=== PATIENT | female | born 1990 | race Hispanic/Latino ===

== ENCOUNTER 2016-10-26 16:34 | Emergency (ER) | payer SELFPAY ==
[2016-10-26 17:16] VITALS: BP 132/82
== END 2016-10-27 01:19 | disposition left against medical advice (07) ==
LOC: ED 16:34
DX: R10.9 Unspecified abdominal pain (principal); Z53.21 Procedure and treatment not carried out due to patient leaving prior to being seen by health care provider

== ENCOUNTER 2016-10-27 18:44 | Emergency (ER) | payer SELFPAY ==
[2016-10-27 19:03] VITALS: BP 116/80
== END 2016-10-27 22:30 | disposition left against medical advice (07) ==
LOC: ED 18:44
DX: Z53.21 Procedure and treatment not carried out due to patient leaving prior to being seen by health care provider (principal)

== ENCOUNTER 2018-10-22 08:08 | Emergency (ER) | payer OTHER ==
--- NOTE | 2018-10-22 08:54 | Emergency Department Report ---
Abscess Boil HPI - HPI Chief Complaint: Skin/Abscess/Foreign Body Stated Complaint: STAPH INFECTION/BUTTOCK Time Seen by Provider: 10/22/18 08:39 Duration: 3 Days Location: Other (buttock) Severity: Mild History: Yes Pain, No Fever, No Purulent Drainage, No Numbness, No Foreign Body, No Previous History, No Insect Bite HPI: This is a 28-year-old female nontoxic, well nourished in appearance, no acute signs of distress presents to the ED with c/o of bilateral buttock redness and pain. Patient stated that she had abscess in the area before. Patient denies any pus or drainage. Patient denies any fevers, chills, nausea, vomiting, chest pain, shortness of breath, headache or stiff neck. Patient states allergies to acetaminophen, penicillin, tramadol. Patient stated has no allergies to Motrin. Patient states past medical history of anxiety. Home Medications: Home Medications Medication Instructions Recorded Confirmed Last Taken clonazePAM [KlonoPIN] 1 mg PO TID 10/27/16 10/27/16 Unknown traZODone 150 mg PO 10/27/16 Unknown Previous Rx's Medication Instructions Recorded Last Taken Type Acetaminophen/Codeine [Tylenol 1 tab PO Q6H PRN #12 tab 08/19/18 Unknown Rx /Codeine # 3 tab] Sulfamethoxazole/Trimethoprim 1 each PO BID #20 tablet 08/19/18 Unknown Rx [Bactrim DS TAB] Clindamycin [Clindamycin CAP] 300 mg PO Q8H #21 cap 10/22/18 Unknown Rx Ibuprofen [Motrin] 600 mg PO Q8H PRN #20 tablet 10/22/18 Unknown Rx Allergies/Adverse Reactions: Allergies Allergy/AdvReac Type Severity Reaction Status Date / Time acetaminophen Allergy Rash Verified 10/27/16 18:57 [From Darvocet-N] ketorolac tromethamine Allergy Rash Verified 10/27/16 18:57 [From Toradol] Penicillins Allergy Unknown Verified 10/27/16 18:57 propoxyphene napsylate Allergy Rash Verified 10/27/16 18:57 [From Darvocet-N] tramadol Allergy Rash Verified 10/27/16 18:57 ED Review of Systems ROS: Stated complaint: STAPH INFECTION/BUTTOCK Other details as noted in HPI Constitutional: denies: chills, fever Eyes: denies: eye pain, eye discharge, vision change ENT: denies: ear pain, throat pain Respiratory: denies: cough, shortness of breath, wheezing Cardiovascular: denies: chest pain, palpitations Endocrine: no symptoms reported Gastrointestinal: denies: abdominal pain, nausea, diarrhea Genitourinary: denies: urgency, dysuria, discharge Musculoskeletal: denies: back pain, joint swelling, arthralgia Skin: denies: rash, lesions Neurological: denies: headache, weakness, paresthesias Psychiatric: denies: anxiety, depression Hematological/Lymphatic: denies: easy bleeding, easy bruising ED Past Medical Hx - Past Medical History Previous Medical History?: No Hx Seizures: Yes Hx Psychiatric Treatment: Yes (anxiety) Additional medical history: Anxiety - Surgical History Past Surgical History?: No Additional Surgical History: UNKNOWN - Social History Smoking Status: Current Every Day Smoker Substance Use Type: None - Medications Home Medications: Home Medications Medication Instructions Recorded Confirmed Last Taken Type clonazePAM [KlonoPIN] 1 mg PO TID 10/27/16 10/27/16 Unknown History traZODone 150 mg PO 10/27/16 Unknown History Acetaminophen/Codeine [Tylenol 1 tab PO Q6H PRN #12 tab 08/19/18 Unknown Rx /Codeine # 3 tab] Sulfamethoxazole/Trimethoprim 1 each PO BID #20 tablet 08/19/18 Unknown Rx [Bactrim DS TAB] Clindamycin [Clindamycin CAP] 300 mg PO Q8H #21 cap 10/22/18 Unknown Rx Ibuprofen [Motrin] 600 mg PO Q8H PRN #20 tablet 10/22/18 Unknown Rx ED Abscess Boil Physical Exam - Exam General: Vital signs noted. No distress. Alert and acting appropriately. Front/Back of Body, Lg (Color): 1 - 2cm by 2 cm circulation erythema with no induration or fluctuance. 2 - 2cm by 2 cm circulation erythema with no induration or fluctuance. Exam: Yes Tenderness, Yes Surrounding Cellulites/Erythema, Yes Normal Neurologic Exam, Yes Normal Circulation, No Fluctuance, No Lymphangitis, No Crepitation, No Heart Murmur Exam: Social Worker Aide Luda seismograph recorder present during exam. ED Course Vital Signs 10/22/18 08:29 Temperature 98.1 F Pulse Rate 99 H Respiratory 16 Rate Blood Pressure 111/71 O2 Sat by Pulse 98 Oximetry - Reevaluation(s) Reevaluation #1: 10/22/18 08:57 Patient is speaking in full sentences with no signs of distress noted. Critical care attestation.: If time is entered above; I have spent that time in minutes in the direct care of this critically ill patient, excluding procedure time. ED Medical Decision Making - Medical Decision Making This is a 28-year-old female that presents with cellulitis. Patient is stable and was examined by me. There is no induration, fluctuance. No signs of abscess formation. The area has been outlined with a permanent marker and patient was instructed to observe symptoms of increased redness or swelling and to return to the ER if this does occur. I will discharge patient with Clinda. Patient did receive a tetanus booster in the ER. Patient was referred to Follow-up with a primary care doctor in 3-5 days or if symptoms worsen and continue return to emergency room as soon as possible. At time of discharge, the patient does not seem toxic or ill in appearance. No acute signs of distress noted. Patient agrees to discharge treatment plan of care. No further questions noted by the patient. ED Disposition Clinical Impression: Cellulitis Disposition: [id number] TO HOME OR SELFCARE Is pt being admited?: No Does the pt Need Aspirin: No Condition: Stable Instructions: Ibuprofen (By mouth), Cellulitis (ED) Additional Instructions: Follow-up with a primary care doctor in 3-5 days or if symptoms worsen and continue return to emergency room as soon as possible. If symptoms of swelling or increased redness occurs you must come back to the ED for further evaluation with possible incision and drainage to be performed as this may indicate an abscess formation. Prescriptions: Clindamycin [Clindamycin CAP] 300 mg PO Q8H #21 cap Ibuprofen [Motrin] 600 mg PO Q8H PRN #20 tablet PRN Reason: Pain Referrals: PRIMARY MYKEL, [Primary Care Provider] - 3-5 Days KRYSTA BOUCHER MD [Staff Physician] - 3-5 Days [facility] [Outside] - 3-5 Days [facility] [Outside] - 3-5 Days Forms: Work/School Release Form(ED)
== END 2018-10-22 09:04 | disposition home or self-care (01) ==
LOC: ED 08:08
CPT/HCPCS: 99281

== ENCOUNTER 2018-12-11 07:55 | Inpatient (IN) | payer OTHER ==
[2018-12-11 08:39] LABS: Basophils # (Auto) 0.1 K/mm3 (0.0-0.1); Basophils % (Auto) 0.5 % (0.0-1.8); Eosinophils # (Auto) 0.2 K/mm3 (0.0-0.4); Eosinophils % (Auto) 1.5 % (0.0-4.3); Hematocrit 40.3 % (30.3-42.9); Hemoglobin 13.6 gm/dl (10.1-14.3); Lymphocytes # (Auto) 0.9 K/mm3 (1.2-5.4); Lymphocytes % (Auto) 7.8 % (13.4-35.0); Mean Corpuscular HGB Conc 34 % (30-34); Mean Corpuscular Volume 92 fl (79-97); Monocytes # (Auto) 0.8 K/mm3 (0.0-0.8); Monocytes % (Auto) 6.5 % (0.0-7.3); Red Cell Distribution Width 13.2 % (13.2-15.2)
[2018-12-11] MEDS ORDERED: TYLENOL PO ONE (08:40)
--- NOTE | 2018-12-11 08:42 | Emergency Department Report ---
HPI - General Chief Complaint: Nausea/Vomiting/Diarrhea Time Seen by Provider: 12/11/18 08:15 - HPI HPI: 28-year-old female presents to the emergency department with complaint of nausea and vomiting, chills and sweats, headache, body aches, that has been going on for the past 2-3 days. The patient is coming from an inpatient rehabilitation center where there are other people with some flulike symptoms. She is therefore a history of meth use but says it has been about 5 months since she last used any illicit drugs. She has not taken anything for her symptoms prior to arrival. She has a past medical history as well of anxiety and seizu res. No recent travel. ED Past Medical Hx - Past Medical History Previous Medical History?: Yes Hx Seizures: Yes Hx Psychiatric Treatment: Yes (anxiety) Additional medical history: Anxiety - Surgical History Past Surgical History?: No Additional Surgical History: UNKNOWN - Social History Smoking Status: Current Every Day Smoker Substance Use Type: None - Medications Home Medications: Home Medications Medication Instructions Recorded Confirmed Last Taken Type clonazePAM [KlonoPIN] 1 mg PO TID 10/27/16 10/27/16 Unknown History traZODone 150 mg PO 10/27/16 Unknown History Acetaminophen/Codeine [Tylenol 1 tab PO Q6H PRN #12 tab 08/19/18 Unknown Rx /Codeine # 3 tab] Sulfamethoxazole/Trimethoprim 1 each PO BID #20 tablet 08/19/18 Unknown Rx [Bactrim DS TAB] Clindamycin [Clindamycin CAP] 300 mg PO Q8H #21 cap 10/22/18 Unknown Rx Ibuprofen [Motrin] 600 mg PO Q8H PRN #20 tablet 10/22/18 Unknown Rx ED Review of Systems ROS: Stated complaint: RUNNING FEVER/VOMITING Other details as noted in HPI Comment: All other systems reviewed and negative Constitutional: chills, diaphoresis Eyes: denies: eye pain, vision change ENT: ear pain. denies: throat pain Respiratory: denies: cough, shortness of breath Cardiovascular: denies: chest pain, palpitations Gastrointestinal: nausea, vomiting Genitourinary: denies: dysuria, discharge Musculoskeletal: myalgia. denies: back pain, arthralgia Skin: denies: rash, lesions Neurological: headache. denies: weakness, numbness Physical Exam - Physical Exam Vital Signs: Vital Signs 12/11/18 07:59 Temperature 98.2 F Pulse Rate 102 H Respiratory 16 Rate Blood Pressure 117/65 O2 Sat by Pulse 97 Oximetry Physical Exam: GENERAL: The patient is well-developed well-nourished. HEENT: Normocephalic. Atraumatic. Patient has moist mucous membranes. Normal- appearing bilateral external ear canals and tympanic membranes. Oropharynx is clear. EYES: Extraocular motions are intact. Pupils are equal and reactive to light bilaterally. Mild fatigable horizontal nystagmus. NECK: Supple. Trachea is midline. CHEST/LUNGS: Clear to auscultation. There is no respiratory distress noted. HEART/CARDIOVASCULAR: Regular. There is no tachycardia. There is no obvious murmur. ABDOMEN: Abdomen is soft. There is some mild right upper quadrant and epigastric tenderness to palpation. No guarding. Patient has normal bowel sounds. There is no abdominal distention. SKIN: Skin is warm and dry. NEURO: The patient is awake, alert, and oriented. The patient is cooperative. The patient has no focal neurologic deficits. The patient has normal speech. Cranial nerves II through XII grossly intact. MUSCULOSKELETAL: There is no tenderness or deformity. There is no limitation range of motion. There is no evidence of acute injury. ED Course Vital Signs 12/11/18 07:59 Temperature 98.2 F Pulse Rate 102 H Respiratory 16 Rate Blood Pressure 117/65 O2 Sat by Pulse 97 Oximetry - Consultations Consultation #1: 12/11/18 10:39 I spoke with the General Surgeon mobile electronics installer, Dr Wilson, regarding the U/S findings of possible choledocholithiasis and her transaminitis and clinical picture. He agrees that it may be prudent to keep the patient as an observational stay and get an MRCP rule in/rule out the choledocholithiasis. ED Medical Decision Making - Lab Data Result diagrams: 12/11/18 08:23 12/11/18 08:23 - Radiology Data Radiology results: report reviewed ULTRASOUND ABDOMEN LIMITED: TECHNIQUE: Transabdominal ultrasound with color Doppler interrogation. HISTORY: Right upper quadrant pain, elevated LFTs. COMPARISON: none. FINDINGS: LIVER: Normal. BILIARY SYSTEM: The gallbladder appears to be partially contracted and contains numerous small shadowing stones. No evidence for abnormal distention or wall thickening. The common bile duct is mildly dilated measuring 6.4 mm. Choledocholithiasis cannot be excluded. PANCREAS: Poorly visualized secondary to bowel gas. No gross abnormality. RIGHT KIDNEY: Normal. PROXIMAL AORTA: Normal. ASCITES: None. IMPRESSION: Cholelithiasis. The common bile duct is mildly dilated suggesting choledocholithiasis could be present. Please correlate with the patient and consider further evaluation with MRCP or ERCP. Transcribed By: TTR Dictated By: ISMAEL MELGAR JR, MD Electronically Authenticated By: ISMAEL MELGAR JR, MD Signed Date/Time: 12/11/18 1002 - Medical Decision Making Patient presents with a 2 day history of some nausea and vomiting, body aches, mild headache, chills, sweats. Overall this seems more consistent with a viral syndrome or flulike symptoms. Patient does have a history of hepatitis C and during her workup her LFTs are elevated at about 6 times the normal limit. However it is much more elevated than her last visit here a few years ago. For this reason an ultrasound was done and came back showing cholelithiasis with some common bile duct dilation that could be hr representative of choledocholithias is. I spoke with the general surgeon mobile electronics installer who agrees that it may be prudent to keep the patient as an observational stay and get an MRCP to look into this. The patient has been updated and understands and agrees to plan. The patient has been accepted for admission by the hospitalist service. - Differential Diagnosis URI, influenza, cholelithiasis, choledocholithiasis, cholecystitis Critical Care Time: No Critical care attestation.: If time is entered above; I have spent that time in minutes in the direct care of this critically ill patient, excluding procedure time. ED Disposition Clinical Impression: Choledocholithiasis, Transaminitis, History of hepatitis C Nausea & vomiting Qualifiers: Vomiting type: unspecified Vomiting Intractability: non-intractable Qualified Code(s): R11.2 - Nausea with vomiting, unspecified Disposition: OP ADMIT IP TO THIS HOSP Is pt being admited?: Yes Condition: Stable Referrals: PRIMARY CARE, [Referring] - 3-5 Days Time of Disposition: 10:36
[2018-12-11] MEDS ORDERED: ZOFRAN ODT PO ONE (08:43)
[2018-12-11 08:54] LABS: Bacteria,Urine 1+ /HPF (Negative); Bilirubin,Urine NEG (Negative); Blood,Urine NEG (Negative); Color,Urine Amber (Yellow); Mucus,Urine 3+ /HPF; Urobilinogen,Urine < 2.0 mg/dL (<2.0)
[2018-12-11] MEDS ORDERED: BACTRIM DS PO ONE (08:59)
[2018-12-11 09:01] LABS: Alanine Aminotransferase 248 units/L (7-56); Albumin 3.7 g/dL (3.9-5); BUN/Creatinine Ratio 15; Blood Urea Nitrogen 9 mg/dL (7-17); Calcium 8.2 mg/dL (8.4-10.2); Hemolysis Index 43
[2018-12-11 09:33] LABS: Platelet Count 199 K/mm3 (140-440)
--- NOTE | 2018-12-11 10:06 | Ultrasound Report ---
ULTRASOUND ABDOMEN LIMITED: TECHNIQUE: Transabdominal ultrasound with color Doppler interrogation. HISTORY: Right upper quadrant pain, elevated LFTs. COMPARISON: none. FINDINGS: LIVER: Normal. BILIARY SYSTEM: The gallbladder appears to be partially contracted and contains numerous small shadowing stones. No evidence for abnormal distention or wall thickening. The common bile duct is mildly dilated measuring 6.4 mm. Choledocholithiasis cannot be excluded. PANCREAS: Poorly visualized secondary to bowel gas. No gross abnormality. RIGHT KIDNEY: Normal. PROXIMAL AORTA: Normal. ASCITES: None. IMPRESSION: Cholelithiasis. The common bile duct is mildly dilated suggesting choledocholithiasis could be present. Please correlate with the patient and consider further evaluation with MRCP or ERCP.
[2018-12-11] MEDS ORDERED: SODIUM CHLORIDE FLUSH SYRINGE 10 ML IV PRN (11:01)
[2018-12-11] MEDS ORDERED: TYLENOL PO PRN (11:01)
[2018-12-11] MEDS: LEVAQUIN 750MG/150ML 750 MG/150 ML BAG IV SCH (12:07)
[2018-12-11] MEDS: NS/KCL 20MEQ 20 MEQ/1,000 ML BAG IV SCH (12:08)
--- NOTE | 2018-12-11 12:37 | Progress Note ---
Assessment and Plan Full consult dictated HPI: 28-year-old female presents to the emergency department with complaint of nausea and vomiting, chills and sweats, headache, body aches, that has been going on for the past 2-3 days. The patient is coming from an inpatient rehabilitation center where there are other people with some flulike symptoms. She is therefore a history of meth use but says it has been about 5 months since she last used any illicit drugs. She has not taken anything for her symptoms prior to arrival. She has a past medical history as well of anxiety and seizures. No recent travel. ED Past Medical Hx - Past Medical History Previous Medical History?: Yes Hx Seizures: Yes Hx Psychiatric Treatment: Yes (anxiety) Additional medical history: Anxiety - Surgical History Past Surgical History?: No Additional Surgical History: UNKNOWN - Social History Smoking Status: Current Every Day Smoker Substance Use Type: None imp - choledocolithiasis r/o biliary colic r/o choledocolithiasi hep C psych and drug abuse hx rec keep NPO will order HIDA & MRCP GI eval Selected Entries 12/11/18 12/11/18 07:59 11:34 Temperature 98.2 F Pulse Rate 99 H Respiratory 18 Rate Blood Pressure 120/75 [Right] Laboratory Tests 12/11/18 12/11/18 12/11/18 08:23 08:23 08:23 WBC 11.6 H Hgb 13.6 Hct 40.3 Sodium 135 L Potassium 3.6 Chloride 101.0 BUN 9 Creatinine 0.6 L Glucose 110 H Total Bilirubin 0.50 AST 178 H ALT 248 H Alkaline Phosphatase 81 Lipase 20 Objective Vital Signs - 12hr 12/11/18 12/11/18 12/11/18 07:59 09:00 10:43 Temperature 98.2 F Pulse Rate 102 H Respiratory 16 18 18 Rate Blood Pressure 117/65 Blood Pressure [Right] O2 Sat by Pulse 97 99 Oximetry 12/11/18 11:34 Temperature Pulse Rate 99 H Respiratory 18 Rate Blood Pressure Blood Pressure 120/75 [Right] O2 Sat by Pulse 99 Oximetry - Labs 12/11/18 08:23 12/11/18 08:23 Diabetes panel 12/11/18 Range/Units 08:23 Sodium 135 L (137-145) mmol/L Potassium 3.6 (3.6-5.0) mmol/L Chloride 101.0 (98-107) mmol/L Carbon Dioxide 24 (22-30) mmol/L BUN 9 (7-17) mg/dL Creatinine 0.6 L (0.7-1.2) mg/dL Glucose 110 H (65-100) mg/dL Calcium 8.2 L (8.4-10.2) mg/dL AST 178 H (5-40) units/L ALT 248 H (7-56) units/L Alkaline Phosphatase 81 (35-129) units/L Total Protein 6.5 (6.3-8.2) g/dL Albumin 3.7 L (3.9-5) g/dL Calcium panel 12/11/18 Range/Units 08:23 Calcium 8.2 L (8.4-10.2) mg/dL Albumin 3.7 L (3.9-5) g/dL Pituitary panel 12/11/18 Range/Units 08:23 Sodium 135 L (137-145) mmol/L Potassium 3.6 (3.6-5.0) mmol/L Chloride 101.0 (98-107) mmol/L Carbon Dioxide 24 (22-30) mmol/L BUN 9 (7-17) mg/dL Creatinine 0.6 L (0.7-1.2) mg/dL Glucose 110 H (65-100) mg/dL Calcium 8.2 L (8.4-10.2) mg/dL Adrenal panel 12/11/18 Range/Units 08:23 Sodium 135 L (137-145) mmol/L Potassium 3.6 (3.6-5.0) mmol/L Chloride 101.0 (98-107) mmol/L Carbon Dioxide 24 (22-30) mmol/L BUN 9 (7-17) mg/dL Creatinine 0.6 L (0.7-1.2) mg/dL Glucose 110 H (65-100) mg/dL Calcium 8.2 L (8.4-10.2) mg/dL Total Bilirubin 0.50 (0.1-1.2) mg/dL AST 178 H (5-40) units/L ALT 248 H (7-56) units/L Alkaline Phosphatase 81 (35-129) units/L Total Protein 6.5 (6.3-8.2) g/dL Albumin 3.7 L (3.9-5) g/dL
[2018-12-11] MEDS: MORPHINE IV PRN ×2 (13:02→20:43)
[2018-12-11] MEDS: FLAGYL 500 MG/100 ML 500 MG/100 ML BAG IV SCH ×2 (14:44→22:07)
--- NOTE | 2018-12-11 15:43 | Gastroenterology Consultation ---
Addendum entered and electronically signed by LEFTY CLINE MD 12/11/18 17:20: Patient seen and examined on 12/11/2018. 28 yo female with pmh of HCV (not treated) admitted for N/V/D. GI consulted for elevated liver enzymes. US showing mild dilation of CBD but just above the upper limits. Liver enzymes mildly elevated with AST and ALT but Alk phos and bilirubin normal. MRCP pending for tomorrow to evaluate for CBD dilation and rule out CBD stone. - will check acute hepatitis panel. - will follow. Original Note: History of Present Illness - Reason for Consult Consult date: 12/11/18 elevated LFTs, Hep C, dilated CBD Requesting physician: JOEY MONTERO - History of Present Illness Patient is a 28 y/o female with PMH of seizures, anxiety, hepatitis C (untreated; dx 2 months ago), and illicit drug use (meth; no use in several months) who presented to ED with c/o N/V/D and flulike symptoms. Upon admission, LFTs were found to be elevated and she underwent an abd U/S that showed gallstones with a mildly dilated CBD suggestive of choledocholithiasis to which GI has been consulted. Surgery is following. This afternoon patient was resting in bed w/o acute distress. Report an acute onset of N/V, diarrhea, chills, and body aches 2 days ago with symptoms now improving. No vomiting today and BM x 1. Admits to generalized "burning sensation" in epigastric/substernal chest area. Denies wt loss, SOB, dysphagia, signs of bleeding, jaundice, or constipation. No recent abx therapy or travel but has been around other at inpatient rehabilitation center with similar symptoms. No hx of PUD or previous EGD. Abdomen benign upon exam. Past History Past Medical History: other (as per HPI) Past Surgical History: No surgical history Social history: smoking, other (illicit drug use (meth; no use x 5months)) Medications and Allergies Allergies Allergy/AdvReac Type Severity Reaction Status Date / Time ketorolac tromethamine Allergy Rash Verified 12/11/18 07:57 [From Toradol] Penicillins Allergy Unknown Verified 12/11/18 07:57 propoxyphene napsylate Allergy Rash Verified 12/11/18 07:57 [From Darvocet-N] tramadol Allergy Rash Verified 12/11/18 07:57 Home Medications Medication Instructions Recorded Confirmed Last Taken Type Citalopram [celeXA] 20 mg PO QDAY 12/11/18 12/11/18 12/11/18 History busPIRone [Buspar] 10 mg PO BID 12/11/18 12/11/18 12/10/18 History traZODone [Desyrel] 100 mg PO QHS 12/11/18 12/11/18 12/10/18 History Active Meds: Active Medications Acetaminophen (Tylenol) 650 mg PO Q4H PRN PRN Reason: Pain MILD(1-3)/Fever >100.5/CRUZ Levofloxacin/Dextrose (Levaquin 750mg/150ml) 750 mg in 150 mls @ 100 mls/hr IV Q24HR JAYDEN; Protocol Last Admin: 12/11/18 12:07 Dose: 100 mls/hr Documented by: Metronidazole (Flagyl 500 Mg/100 Ml) 500 mg in 100 mls @ 100 mls/hr IV Q8HR JAYDEN; Protocol Last Admin: 12/11/18 14:44 Dose: 100 mls/hr Documented by: Potassium Chloride/Sodium Chloride (Ns/Kcl 20meq) 20 meq in 1,000 mls @ 100 mls/hr IV DIRECT JAYDEN Last Admin: 12/11/18 12:08 Dose: 100 mls/hr Documented by: Morphine Sulfate (Morphine) 2 mg IV Q3H PRN PRN Reason: Pain, Moderate (4-6) Last Admin: 12/11/18 13:02 Dose: 2 mg Documented by: Ondansetron HCl (Zofran) 4 mg IV Q8H PRN PRN Reason: Nausea And Vomiting Sodium Chloride (Sodium Chloride Flush Syringe 10 Ml) 10 ml IV BID JAYDEN Sodium Chloride (Sodium Chloride Flush Syringe 10 Ml) 10 ml IV PRN PRN PRN Reason: LINE FLUSH medications reviewed/updated as required Review of Systems - Review of Systems Constitutional: chills, other (body aches) Gastrointestinal: nausea, vomiting, diarrhea Exam - Constitutional Vital Signs: Temp Pulse Resp BP Pulse Ox 98.2 F 99 H 18 120/75 99 12/11/18 07:59 12/11/18 11:34 12/11/18 11:34 12/11/18 11:34 12/11/18 11:34 General appearance: no acute distress - EENT Eyes: PERRL, EOM intact ENT: hearing intact - Respiratory Respiratory: bilateral: CTA - Cardiovascular Rhythm: other (tachycardia) - Gastrointestinal General gastrointestinal: Present: soft, non-tender, non-distended, normal bowel sounds - Neurologic Neurological: alert and oriented x3 - Labs CBC & Chem 7: 12/11/18 08:23 12/11/18 08:23 Lab Results: Laboratory Results - last 24 hr 12/11/18 12/11/18 12/11/18 08:17 08:23 08:23 WBC 11.6 H RBC 4.40 Hgb 13.6 Hct 40.3 MCV 92 MCH 31 MCHC 34 RDW 13.2 Plt Count 199 Lymph % (Auto) 7.8 L [place] % (Auto) 6.5 Eos % (Auto) 1.5 Baso % (Auto) 0.5 Lymph # 0.9 L [place] # 0.8 Eos # 0.2 Baso # 0.1 Seg Neutrophils % 83.7 H Seg Neutrophils # 9.7 H Sodium 135 L Potassium 3.6 Chloride 101.0 Carbon Dioxide 24 Anion Gap 14 BUN 9 Creatinine 0.6 L Estimated GFR > 60 BUN/Creatinine Ratio 15 Glucose 110 H Calcium 8.2 L Total Bilirubin 0.50 AST 178 H ALT 248 H Alkaline Phosphatase 81 Total Protein 6.5 Albumin 3.7 L Albumin/Globulin Ratio 1.3 Lipase HCG, Qual Urine Color Emely Urine Turbidity Clear Urine pH 5.0 Ur Specific [place] 1.031 H Urine Protein 30 mg/dl Urine Glucose (UA) Neg Urine Ketones Neg Urine Blood Neg Urine Nitrite Neg Urine Bilirubin Neg Urine Urobilinogen < 2.0 Ur Leukocyte Esterase Tr Urine WBC (Auto) 11.0 H Urine RBC (Auto) 5.0 U Epithel Cells (Auto) 4.0 Urine Bacteria (Auto) 1+ Urine Mucus 3+ 12/11/18 12/11/18 08:23 08:23 WBC RBC Hgb Hct MCV MCH MCHC RDW Plt Count Lymph % (Auto) [place] % (Auto) Eos % (Auto) Baso % (Auto) Lymph # [place] # Eos # Baso # Seg Neutrophils % Seg Neutrophils # Sodium Potassium Chloride Carbon Dioxide Anion Gap BUN Creatinine Estimated GFR BUN/Creatinine Ratio Glucose Calcium Total Bilirubin AST ALT Alkaline Phosphatase Total Protein Albumin Albumin/Globulin Ratio Lipase 20 HCG, Qual Negative Urine Color Urine Turbidity Urine pH Ur Specific [place] Urine Protein Urine Glucose (UA) Urine Ketones Urine Blood Urine Nitrite Urine Bilirubin Urine Urobilinogen Ur Leukocyte Esterase Urine WBC (Auto) Urine RBC (Auto) U Epithel Cells (Auto) Urine Bacteria (Auto) Urine Mucus Assessment and Plan 1.choledocholithiasis? 2.elevated LFTs 3.epigastric/substernal burning 4.N/V/D-improving 5.Hx of hepatitis C -patient is a 28 y/o female with an acute on set of N/V/D and flulike symptoms x 2 days with symptoms now improving. No vomiting today/BM x 1. -afebrile -WBC 11.6 -H/H 13.6/40.3- no active signs of bleeding -plt 199 -T.lawson 0.50, AST 178, ALT 248, alk phos 81 -lipase WNL -abd U/S showed gallstones and mildly dilated CBD (6.4mm) suggestive of choledocholithiasis -surgery following -etiology unclear- possible viral process vs GB vs other -MRCP and HIDA pending- consider ERCP based on result -INR, acute hepatitis panel, and repeat CBC/CMP in am -HCV VL and genotype in am (treatment as outpt) -continue PPI and supportive care -further recommendations to follow above results
--- NOTE | 2018-12-11 15:47 | History and Physical Report ---
History of Present Illness Date of examination: 12/11/18 Date of admission: 12/11/18 10:37 Chief complaint: Nausea and vomiting History of present illness: She is a 28-year-old female with history of recent diagnosis of hepatitis C virus infection, who presented to the ED on account of 2 days history of nausea with vomiting. She has associated burning epigastric pain, fever with chills, diarrhea and headaches. She denies constipation, dysuria or frequency, but admits to foul-smelling urine. No chest pain, shortness of breath, palpitation, leg swelling, sore throat, runny nose or congestion, orthopnea or PND. No lightheadedness, bleeding from any orifice, syncope or loss of consciousness Past History Past Medical History: other (hepatitis C virus infection, anxiety) Past Surgical History: No surgical history Social history: smoking (has been smoking few sticks of cigarettes per day for a year), alcohol abuse (denies alcohol use), IV drug use (used methamphetamine and IV drug use for 5 years but quit 8 months ago) Family history: no significant family history (reviewed and noncontributory) Medications and Allergies Allergies Allergy/AdvReac Type Severity Reaction Status Date / Time ketorolac tromethamine Allergy Rash Verified 12/11/18 07:57 [From Toradol] Penicillins Allergy Unknown Verified 12/11/18 07:57 propoxyphene napsylate Allergy Rash Verified 12/11/18 07:57 [From Darvocet-N] tramadol Allergy Rash Verified 12/11/18 07:57 Home Medications Medication Instructions Recorded Confirmed Last Taken Type Citalopram [celeXA] 20 mg PO QDAY 12/11/18 12/11/18 12/11/18 History busPIRone [Buspar] 10 mg PO BID 12/11/18 12/11/18 12/10/18 History traZODone [Desyrel] 100 mg PO QHS 12/11/18 12/11/18 12/10/18 History Active Meds: Active Medications Acetaminophen (Tylenol) 650 mg PO Q4H PRN PRN Reason: Pain MILD(1-3)/Fever >100.5/CRUZ Levofloxacin/Dextrose (Levaquin 750mg/150ml) 750 mg in 150 mls @ 100 mls/hr IV Q24HR [facility]; Protocol Last Admin: 12/11/18 12:07 Dose: 100 mls/hr Documented by: Metronidazole (Flagyl 500 Mg/100 Ml) 500 mg in 100 mls @ 100 mls/hr IV Q8HR JAYDEN; Protocol Last Admin: 12/11/18 14:44 Dose: 100 mls/hr Documented by: Potassium Chloride/Sodium Chloride (Ns/Kcl 20meq) 20 meq in 1,000 mls @ 100 mls/hr IV DIRECT JAYDEN Last Admin: 12/11/18 12:08 Dose: 100 mls/hr Documented by: Morphine Sulfate (Morphine) 2 mg IV Q3H PRN PRN Reason: Pain, Moderate (4-6) Last Admin: 12/11/18 13:02 Dose: 2 mg Documented by: Ondansetron HCl (Zofran) 4 mg IV Q8H PRN PRN Reason: Nausea And Vomiting Sodium Chloride (Sodium Chloride Flush Syringe 10 Ml) 10 ml IV BID JAYDEN Sodium Chloride (Sodium Chloride Flush Syringe 10 Ml) 10 ml IV PRN PRN PRN Reason: LINE FLUSH Review of Systems All systems: negative (except as documented in the HPI, all other systems were reviewed and negative) Exam - Constitutional Vitals: Temp Pulse Resp BP Pulse Ox 98.2 F 99 H 18 120/75 99 12/11/18 07:59 12/11/18 11:34 12/11/18 11:34 12/11/18 11:34 12/11/18 11:34 General appearance: Present: no acute distress, well-nourished - EENT Eyes: Present: PERRL, EOM intact ENT: hearing intact, clear oral mucosa - Neck Neck: Present: supple, normal ROM - Respiratory Respiratory effort: normal Respiratory: bilateral: CTA - Cardiovascular Rhythm: regular Heart Sounds: Present: S1 & S2. Absent: rub, click - Extremities Extremities: No edema Peripheral Pulses: within normal limits - Abdominal General gastrointestinal: Present: soft, non-tender, non-distended, normal bowel sounds Female genitourinary: Present: normal - Rectal Rectal Exam: deferred - Integumentary Integumentary: Present: clear, warm, dry - Musculoskeletal Musculoskeletal: gait normal, strength equal bilaterally - Psychiatric Psychiatric: appropriate mood/affect, intact judgment & insight - Neurologic Neurologic: CNII-XII intact, moves all extremities Results - Labs CBC & Chem 7: 12/11/18 08:23 12/11/18 08:23 Labs: Laboratory Last Values WBC 11.6 K/mm3 (4.5-11.0) H 12/11/18 08:23 RBC 4.40 M/mm3 (3.65-5.03) 12/11/18 08:23 Hgb 13.6 gm/dl (10.1-14.3) 12/11/18 08:23 Hct 40.3 % (30.3-42.9) 12/11/18 08:23 MCV 92 fl (79-97) 12/11/18 08:23 MCH 31 pg (28-32) 12/11/18 08:23 MCHC 34 % (30-34) 12/11/18 08:23 RDW 13.2 % (13.2-15.2) 12/11/18 08:23 Plt Count 199 K/mm3 (140-440) 12/11/18 08:23 Lymph % (Auto) 7.8 % (13.4-35.0) L 12/11/18 08:23 [place] % (Auto) 6.5 % (0.0-7.3) 12/11/18 08:23 Eos % (Auto) 1.5 % (0.0-4.3) 12/11/18 08:23 Baso % (Auto) 0.5 % (0.0-1.8) 12/11/18 08:23 Lymph # 0.9 K/mm3 (1.2-5.4) L 12/11/18 08:23 [place] # 0.8 K/mm3 (0.0-0.8) 12/11/18 08:23 Eos # 0.2 K/mm3 (0.0-0.4) 12/11/18 08:23 Baso # 0.1 K/mm3 (0.0-0.1) 12/11/18 08:23 Seg Neutrophils % 83.7 % (40.0-70.0) H 12/11/18 08:23 Seg Neutrophils # 9.7 K/mm3 (1.8-7.7) H 12/11/18 08:23 Sodium 135 mmol/L (137-145) L 12/11/18 08:23 Potassium 3.6 mmol/L (3.6-5.0) 12/11/18 08:23 Chloride 101.0 mmol/L (98-107) 12/11/18 08:23 Carbon Dioxide 24 mmol/L (22-30) 12/11/18 08:23 Anion Gap 14 mmol/L 12/11/18 08:23 BUN 9 mg/dL (7-17) 12/11/18 08:23 Creatinine 0.6 mg/dL (0.7-1.2) L 12/11/18 08:23 Estimated GFR > 60 ml/min 12/11/18 08:23 BUN/Creatinine Ratio 15 % 12/11/18 08:23 Glucose 110 mg/dL (65-100) H 12/11/18 08:23 Calcium 8.2 mg/dL (8.4-10.2) L 12/11/18 08:23 Total Bilirubin 0.50 mg/dL (0.1-1.2) 12/11/18 08:23 AST 178 units/L (5-40) H 12/11/18 08:23 ALT 248 units/L (7-56) H 12/11/18 08:23 Alkaline Phosphatase 81 units/L (35-129) 12/11/18 08:23 Total Protein 6.5 g/dL (6.3-8.2) 12/11/18 08:23 Albumin 3.7 g/dL (3.9-5) L 12/11/18 08:23 Albumin/Globulin Ratio 1.3 % 12/11/18 08:23 Lipase 20 units/L (13-60) 12/11/18 08:23 HCG, Qual Negative (Negative) 12/11/18 08:23 Urine Color Emely (Yellow) 12/11/18 08:17 Urine Turbidity Clear (Clear) 12/11/18 08:17 Urine pH 5.0 (5.0-7.0) 12/11/18 08:17 Ur Specific [place] 1.031 (1.003-1.030) H 12/11/18 08:17 Urine Protein 30 mg/dl mg/dL (Negative) 12/11/18 08:17 Urine Glucose (UA) Neg mg/dL (Negative) 12/11/18 08:17 Urine Ketones Neg mg/dL (Negative) 12/11/18 08:17 Urine Blood Neg (Negative) 12/11/18 08:17 Urine Nitrite Neg (Negative) 12/11/18 08:17 Urine Bilirubin Neg (Negative) 12/11/18 08:17 Urine Urobilinogen < 2.0 mg/dL (<2.0) 12/11/18 08:17 Ur Leukocyte Esterase Tr (Negative) 12/11/18 08:17 Urine WBC (Auto) 11.0 /HPF (0.0-6.0) H 12/11/18 08:17 Urine RBC (Auto) 5.0 /HPF (0.0-6.0) 12/11/18 08:17 U Epithel Cells (Auto) 4.0 /HPF (0-13.0) 12/11/18 08:17 Urine Bacteria (Auto) 1+ /HPF (Negative) 12/11/18 08:17 Urine Mucus 3+ /HPF 12/11/18 08:17 - Imaging and Cardiology US - abdomen: report reviewed Assessment and Plan Assessment and plan: Acute choledocholithiasis -On IV antibiotics and Protonix -Lipase level normal -Abdominal ultrasound suggestive of choledocholithiasis, HIDA/MRCP recommended -Surgery following UTI -On IV antibiotic -Urine culture pending Recent diagnosis of HCV Infection -For out-pt f/u H/o Anxiety -stable Polysubstance abuse(tobacco and methamphetamine) -Patient counseled DVT prophylaxis with SCD Time spent: 38 minutes Disposition: For discharge when medically stable
[2018-12-11] MEDS: PROTONIX IV SCH (17:21)
--- NOTE | 2018-12-11 20:04 | Consultation ---
ADMITTING DIAGNOSES: 1. Rule out biliary colic. 2. Rule out choledocholithiasis. 3. Hepatitis C. HISTORY OF PRESENT ILLNESS: The patient is a 28-year-old female with a past psych history and history of drug dependency, presented to the Emergency Room at this time with chief complaints of nausea, vomiting as well as nonspecific right upper quadrant abdominal pain. Also, states she had fever and some diarrhea. PAST MEDICAL HISTORY: Pertinent for hepatitis C. PAST SURGICAL HISTORY: Negative. ALLERGIES: No known allergies. MEDICATIONS: Includes Celexa and sleep meds. The patient did not mention to me, but it is noted here on history that she also has had a history of methamphetamine abuse. When questioned, the patient on this, she states she has not used any illicit drugs for the past " FAMILY HISTORY: Negative. SOCIAL HISTORY: Occasionally smokes, denies any alcohol. REVIEW OF SYSTEMS: Noncontributory. PHYSICAL EXAMINATION: GENERAL: At this time reveals the patient to be awake, alert, cooperative, in no acute distress. VITAL SIGNS: Show her to be afebrile with a temperature 98.2, blood pressure 120/75, pulse of 99, respirations of 18. HEENT: Pupils are equal and reactive to light and accommodation. Sclerae is nonicteric. ABDOMEN: Examination of the abdomen reveals to be moderately obese and soft. There is minimal nonspecific epigastric and right upper quadrant tenderness. The rest of the abdomen is essentially within normal limits. Bowel sounds are present. LABORATORY DATA: Lab work at present includes a CBC shows a white count of 11.6, H and H is 13.6 and 40.3. Electrolytes are essentially within normal limits. LFTs are slightly elevated including an AST of 178, ALT of 248. Alkaline phosphatase is normal at 81. Total bilirubin is also normal at 0.5. Lipase is normal at 20. Gallbladder ultrasound has been performed, whose impression reads cholelithiasis. No evidence of acute cholecystitis is described. Common bile duct is mildly dilated at 6.4 mm and a " IMPRESSION: 1. At this time is that of a 28-year-old patient with past psychiatric history as well as a history of previous drug abuse. 2. Known hepatitis C. 3. Cholelithiasis. 4. Rule out choledocholithiasis and rule out biliary colic. RECOMMENDATIONS: At this time is to keep the patient n.p.o. We will order a HIDA scan as well as an MRCP. Also, we will order GI evaluation due to the patient's history of hepatitis C and elevated LFTs as well as possible choledocholithiasis. I will follow closely with you. Thank you very much for consultation. JOB# [id number] PIPE/JENNIFER
[2018-12-11] MEDS: SODIUM CHLORIDE FLUSH SYRINGE 10 ML IV SCH (22:07)
[2018-12-12] MEDS: MORPHINE IV PRN ×2 (00:02→10:41)
[2018-12-12] MEDS ORDERED: ALUM-MAG HYDROX-SIMETH 200-200-20MG/5ML PO ONE (01:25)
[2018-12-12] MEDS: NS/KCL 20MEQ 20 MEQ/1,000 ML BAG IV SCH (03:20)
[2018-12-12] MEDS ORDERED: NACL 0.9% 500 ML 500 ML IV ONE (05:10)
[2018-12-12] MEDS: FLAGYL 500 MG/100 ML 500 MG/100 ML BAG IV SCH ×3 (05:51→21:50)
[2018-12-12 07:45] LABS: Basophils % (Auto) 0.6 % (0.0-1.8); Eosinophils # (Auto) 0.2 K/mm3 (0.0-0.4); Eosinophils % (Auto) 5.6 % (0.0-4.3); Hematocrit 35.9 % (30.3-42.9); Hemoglobin 12.6 gm/dl (10.1-14.3); Lymphocytes # (Auto) 0.9 K/mm3 (1.2-5.4); Lymphocytes % (Auto) 24.7 % (13.4-35.0); Mean Corpuscular HGB Conc 35 % (30-34); Mean Corpuscular Volume 91 fl (79-97); Monocytes # (Auto) 0.6 K/mm3 (0.0-0.8); Monocytes % (Auto) 15.7 % (0.0-7.3); Platelet Count 170 K/mm3 (140-440); Red Blood Count 3.93 M/mm3 (3.65-5.03); Red Cell Distribution Width 13.4 % (13.2-15.2)
[2018-12-12 07:51] LABS: Alanine Aminotransferase 273 units/L (7-56); Albumin 3.3 g/dL (3.9-5); BUN/Creatinine Ratio 12; Blood Urea Nitrogen 7 mg/dL (7-17); Calcium 7.4 mg/dL (8.4-10.2); Hemolysis Index 3
[2018-12-12 07:58] LABS: INR 1.05 (0.87-1.13)
[2018-12-12 09:48] LABS: Hepatitis B Surface Antigen Non-Reactive (Negative); Hepatitis C Virus Antibody Reactive (NonReactive)
--- NOTE | 2018-12-12 10:26 | Nuclear Medicine Report ---
HEPATOBILIARY SCAN: History: Evaluate for acute GDA. Following the injection of the radionuclide, serial scanning was obtained over the right upper quadrant. There is normal uptake and excretion of the radiotracer by the liver parenchyma. The central biliary ducts, common bile duct and small bowel loops are visualized after appropriate time. There is nonvisualization of the gallbladder up to 2 hours. The gallbladder is contracted and contains multiple stones on ultrasound. IMPRESSION: Nonvisualization of the gallbladder out to 2 hours on HIDA scan. This could represent chronic cholecystitis given there are no convincing findings of acute cholecystitis on ultrasound. Please correlate with the patient's clinical presentation.
--- NOTE | 2018-12-12 10:31 | Progress Note ---
Assessment and Plan Pt currently not in room. Probably on way to MRI Mom states she's still experiencing some RUQ pain reviewed HIDA with radiologist. non vis GB imp r/o chronic cholecystitis (as non vis GB but US no thickened GB wall with + stones) awaiting MRI findings to see if ERCP will be needed prior to lap GB Selected Entries 12/12/18 04:55 Temperature 97.0 F L Pulse Rate 78 Respiratory 16 Rate Blood Pressure 76/40 Laboratory Tests 12/12/18 12/12/18 06:57 06:57 WBC 3.7 L Hgb 12.6 Hct 35.9 Sodium 141 Potassium 4.1 Chloride 104.8 Carbon Dioxide 25 Anion Gap 15 BUN 7 Creatinine 0.6 L Total Bilirubin 0.30 AST 173 H ALT 273 H Alkaline Phosphatase 89 Albumin/Globulin Ratio 1.3 Objective Vital Signs - 12hr 12/11/18 12/12/18 12/12/18 23:21 00:02 00:32 Temperature 98.7 F Pulse Rate 72 Respiratory 16 18 18 Rate Blood Pressure 94/60 O2 Sat by Pulse 100 Oximetry 12/12/18 04:55 Temperature 97.0 F L Pulse Rate 78 Respiratory 16 Rate Blood Pressure 76/40 O2 Sat by Pulse 96 Oximetry - Labs 12/12/18 06:57 12/12/18 06:57 Diabetes panel 12/12/18 Range/Units 06:57 Sodium 141 (137-145) mmol/L Potassium 4.1 (3.6-5.0) mmol/L Chloride 104.8 (98-107) mmol/L Carbon Dioxide 25 (22-30) mmol/L BUN 7 (7-17) mg/dL Creatinine 0.6 L (0.7-1.2) mg/dL Glucose 87 (65-100) mg/dL Calcium 7.4 L (8.4-10.2) mg/dL AST 173 H (5-40) units/L ALT 273 H (7-56) units/L Alkaline Phosphatase 89 (35-129) units/L Total Protein 5.8 L (6.3-8.2) g/dL Albumin 3.3 L (3.9-5) g/dL Calcium panel 12/12/18 Range/Units 06:57 Calcium 7.4 L (8.4-10.2) mg/dL Albumin 3.3 L (3.9-5) g/dL Pituitary panel 12/12/18 Range/Units 06:57 Sodium 141 (137-145) mmol/L Potassium 4.1 (3.6-5.0) mmol/L Chloride 104.8 (98-107) mmol/L Carbon Dioxide 25 (22-30) mmol/L BUN 7 (7-17) mg/dL Creatinine 0.6 L (0.7-1.2) mg/dL Glucose 87 (65-100) mg/dL Calcium 7.4 L (8.4-10.2) mg/dL Adrenal panel 12/12/18 Range/Units 06:57 Sodium 141 (137-145) mmol/L Potassium 4.1 (3.6-5.0) mmol/L Chloride 104.8 (98-107) mmol/L Carbon Dioxide 25 (22-30) mmol/L BUN 7 (7-17) mg/dL Creatinine 0.6 L (0.7-1.2) mg/dL Glucose 87 (65-100) mg/dL Calcium 7.4 L (8.4-10.2) mg/dL Total Bilirubin 0.30 (0.1-1.2) mg/dL AST 173 H (5-40) units/L ALT 273 H (7-56) units/L Alkaline Phosphatase 89 (35-129) units/L Total Protein 5.8 L (6.3-8.2) g/dL Albumin 3.3 L (3.9-5) g/dL
[2018-12-12] MEDS: LEVAQUIN 750MG/150ML 750 MG/150 ML BAG IV SCH (10:42)
[2018-12-12] MEDS: PROTONIX IV SCH ×2 (10:42→21:51)
[2018-12-12] MEDS: SODIUM CHLORIDE FLUSH SYRINGE 10 ML IV SCH ×2 (10:42→21:51)
--- NOTE | 2018-12-12 10:51 | Event Note ---
Date: 12/12/18 MRCP pending for today to r/o choledocholithiasis. Further recommendations to follow results.
[2018-12-12] MEDS ORDERED: NACL 0.9% 1000 ML 1,000 ML IV ONE ×2 (11:00→15:05)
[2018-12-12] MEDS ORDERED: DILAUDID IV PRN (11:30)
--- NOTE | 2018-12-12 14:05 | Progress Note ---
Assessment and Plan Assessment and plan: Acute choledocholithiasis -On IV antibiotics and Protonix -Lipase level normal -Abdominal ultrasound suggestive of choledocholithiasis, -HIDA scan suggestive of chronic cholecystitis -Surgery following UTI -On IV antibiotic -Urine culture neg so far Diarrhea -Resolved -will d/c c.diff toxin test Hypotension -likely narcotic induced -on IVF, will monitor blood pressure Recent diagnosis of HCV Infection -For out-pt f/u H/o Anxiety -stable -will resume home meds when off NPO Polysubstance abuse(tobacco and methamphetamine) -Patient counseled DVT prophylaxis with SCD Disposition: For discharge when cleared by surgery team History Interval history: Patient complained of burning upper abdominal pain not relieved by current narcotic Hospitalist Physical - Constitutional Vitals: Temp Pulse Resp BP Pulse Ox 97.8 F 74 18 84/46 100 12/12/18 12:12 12/12/18 12:12 12/12/18 12:12 12/12/18 12:12 12/12/18 12:12 General appearance: Present: no acute distress, well-nourished - EENT Eyes: Present: PERRL, EOM intact ENT: hearing intact, clear oral mucosa - Neck Neck: Present: supple - Respiratory Respiratory effort: normal Respiratory: bilateral: CTA - Cardiovascular Rhythm: regular Heart Sounds: Present: S1 & S2 - Extremities Extremities: No edema - Abdominal General gastrointestinal: soft, non-tender, non-distended, normal bowel sounds - Neurologic Neurologic: CNII-XII intact Results - Labs CBC & Chem 7: 12/12/18 06:57 12/12/18 06:57 Labs: Laboratory Last Values WBC 3.7 K/mm3 (4.5-11.0) L 12/12/18 06:57 RBC 3.93 M/mm3 (3.65-5.03) 12/12/18 06:57 Hgb 12.6 gm/dl (10.1-14.3) 12/12/18 06:57 Hct 35.9 % (30.3-42.9) 12/12/18 06:57 MCV 91 fl (79-97) 12/12/18 06:57 MCH 32 pg (28-32) 12/12/18 06:57 MCHC 35 % (30-34) H 12/12/18 06:57 RDW 13.4 % (13.2-15.2) 12/12/18 06:57 Plt Count 170 K/mm3 (140-440) 12/12/18 06:57 Lymph % (Auto) 24.7 % (13.4-35.0) 12/12/18 06:57 [place] % (Auto) 15.7 % (0.0-7.3) H 12/12/18 06:57 Eos % (Auto) 5.6 % (0.0-4.3) H 12/12/18 06:57 Baso % (Auto) 0.6 % (0.0-1.8) 12/12/18 06:57 Lymph # 0.9 K/mm3 (1.2-5.4) L 12/12/18 06:57 [place] # 0.6 K/mm3 (0.0-0.8) 12/12/18 06:57 Eos # 0.2 K/mm3 (0.0-0.4) 12/12/18 06:57 Baso # 0.0 K/mm3 (0.0-0.1) 12/12/18 06:57 Seg Neutrophils % 53.4 % (40.0-70.0) 12/12/18 06:57 Seg Neutrophils # 2.0 K/mm3 (1.8-7.7) 12/12/18 06:57 PT 14.3 Sec. (12.2-14.9) 12/12/18 06:57 INR 1.05 (0.87-1.13) 12/12/18 06:57 Sodium 141 mmol/L (137-145) 12/12/18 06:57 Potassium 4.1 mmol/L (3.6-5.0) 12/12/18 06:57 Chloride 104.8 mmol/L (98-107) 12/12/18 06:57 Carbon Dioxide 25 mmol/L (22-30) 12/12/18 06:57 Anion Gap 15 mmol/L 12/12/18 06:57 BUN 7 mg/dL (7-17) 12/12/18 06:57 Creatinine 0.6 mg/dL (0.7-1.2) L 12/12/18 06:57 Estimated GFR > 60 ml/min 12/12/18 06:57 BUN/Creatinine Ratio 12 % 12/12/18 06:57 Glucose 87 mg/dL (65-100) 12/12/18 06:57 Calcium 7.4 mg/dL (8.4-10.2) L 12/12/18 06:57 Magnesium 1.80 mg/dL (1.7-2.3) 12/12/18 06:57 Total Bilirubin 0.30 mg/dL (0.1-1.2) 12/12/18 06:57 AST 173 units/L (5-40) H 12/12/18 06:57 ALT 273 units/L (7-56) H 12/12/18 06:57 Alkaline Phosphatase 89 units/L (35-129) 12/12/18 06:57 Total Protein 5.8 g/dL (6.3-8.2) L 12/12/18 06:57 Albumin 3.3 g/dL (3.9-5) L 12/12/18 06:57 Albumin/Globulin Ratio 1.3 % 12/12/18 06:57 Lipase 20 units/L (13-60) 12/11/18 08:23 HCG, Qual Negative (Negative) 12/11/18 08:23 Urine Color [place] (Yellow) 12/11/18 08:17 Urine Turbidity Clear (Clear) 12/11/18 08:17 Urine pH 5.0 (5.0-7.0) 12/11/18 08:17 Ur Specific [place] 1.031 (1.003-1.030) H 12/11/18 08:17 Urine Protein 30 mg/dl mg/dL (Negative) 12/11/18 08:17 Urine Glucose (UA) Neg mg/dL (Negative) 12/11/18 08:17 Urine Ketones Neg mg/dL (Negative) 12/11/18 08:17 Urine Blood Neg (Negative) 12/11/18 08:17 Urine Nitrite Neg (Negative) 12/11/18 08:17 Urine Bilirubin Neg (Negative) 12/11/18 08:17 Urine Urobilinogen < 2.0 mg/dL (<2.0) 12/11/18 08:17 Ur Leukocyte Esterase Tr (Negative) 12/11/18 08:17 Urine WBC (Auto) 11.0 /HPF (0.0-6.0) H 12/11/18 08:17 Urine RBC (Auto) 5.0 /HPF (0.0-6.0) 12/11/18 08:17 U Epithel Cells (Auto) 4.0 /HPF (0-13.0) 12/11/18 08:17 Urine Bacteria (Auto) 1+ /HPF (Negative) 12/11/18 08:17 Urine Mucus 3+ /HPF 12/11/18 08:17 Hepatitis A IgM Ab Non-reactive (NonReactive) 12/12/18 06:57 Hep Bs Antigen Non-reactive (Negative) 12/12/18 06:57 Hep B Core IgM Ab Non-reactive (NonReactive) 12/12/18 06:57 Hepatitis C Antibody Reactive (NonReactive) A 12/12/18 06:57
[2018-12-12] MEDS: DILAUDID IV PRN ×3 (15:29→23:51)
[2018-12-13] MEDS: NS/KCL 20MEQ 20 MEQ/1,000 ML BAG IV SCH ×2 (02:42→20:29)
[2018-12-13] MEDS: FLAGYL 500 MG/100 ML 500 MG/100 ML BAG IV SCH ×3 (05:38→22:32)
[2018-12-13] MEDS: DILAUDID IV PRN ×4 (09:39→23:20)
[2018-12-13] MEDS: PROTONIX IV SCH ×2 (09:40→22:32)
[2018-12-13] MEDS: SODIUM CHLORIDE FLUSH SYRINGE 10 ML IV SCH ×2 (09:41→22:33)
[2018-12-13] MEDS: LEVAQUIN 750MG/150ML 750 MG/150 ML BAG IV SCH (09:41)
[2018-12-13] MEDS ORDERED: NACL 0.9% 500 ML 500 ML IV ONE (09:59)
--- NOTE | 2018-12-13 10:05 | Magnetic Resonance Report ---
FINAL REPORT EXAM: MR ABDOMEN MRCP HISTORY: r/o choledocholithiasis TECHNIQUE: MRCP of the abdomen without gadolinium IV contrast. PRIORS: None currently available. FINDINGS: Biliary: Common bile duct measures 7.1 mm. Distal aspect of the duct is mildly blunted on series 9:55 there appears to be a 2 mm signal defect. Gallbladder is mildly distended. Multiple gallstones ident ified. No wall thickening. No pericholecystic fluid. No intrahepatic biliary duct dilatation. Pancreas: 2.8 mm. No distinct lesions. Spleen: 14.4 cm. No distinct lesions. Liver, adrenals, and kidneys are unremarkable. Partially imaged aorta and IVC are unremarkable. Partially imaged bowel loops are unremarkable. IMPRESSION: Dilated common bile duct. Signal defect at the distal common duct may represent a small stone, lesion , or hypertrophy of the sphincter of Oddi. Nondistended gallbladder with gallstones. No wall thickening or pericholecystic fluid.
--- NOTE | 2018-12-13 10:52 | Progress Note ---
Assessment and Plan Pt still c/o mild RUQ abd pain Abd soft, mild RUQ tenderness biliary colic/cholecystitis MRCP - discussed with tele-rad questionable small distal stone? alk phos & T Anish wnl discussed with GI (they should be seeing pt within next couple of hours) pt scheduled for lap GB on Saturday am already discussed with pt and family plan - lap GB Saturday pending GI eval today. Selected Entries 12/13/18 12/13/18 00:21 04:19 Temperature 98.0 F Pulse Rate 83 Respiratory 17 Rate Blood Pressure 92/56 Laboratory Tests 12/12/18 12/12/18 06:57 06:57 WBC 3.7 L Hgb 12.6 Hct 35.9 Sodium 141 Potassium 4.1 Chloride 104.8 Carbon Dioxide 25 BUN 7 Creatinine 0.6 L Total Bilirubin 0.30 AST 173 H ALT 273 H Alkaline Phosphatase 89 Objective Vital Signs - 12hr 12/12/18 12/13/18 12/13/18 23:51 00:21 04:19 Temperature 98.0 F Pulse Rate 83 Respiratory 18 17 20 Rate Blood Pressure 92/56 O2 Sat by Pulse 97 Oximetry - Labs 12/12/18 06:57 12/12/18 06:57
[2018-12-13] MEDS ORDERED: NACL 0.9% 500 ML 500 ML ONE (13:10)
--- NOTE | 2018-12-13 13:10 | Gastroenterology Progress Note ---
Assessment and Plan 1. Elevated liver enzymes - hepatocellular pattern; possibly from recent hepatitis c infection. ? cbd filling defect/stone which may be contributing. 2. Cholecystitis - surgery following 3. CBD dilatation - MRCP with dilated cbd and distal cbd filling defect; pt with GB stones as well. afebrile and stable. trend liver enzymes and likely will need ERCP (Saturday) based on trend of labs. if labs trend down, would then recommend CCY with IOC given likely passed stone. will follow Subjective Date of service: 12/13/18 Principal diagnosis: elevated liver enzymes Interval history: pt seen and examined; complaints of RUQ burning/discomfort. no fevers/chills. Objective - Constitutional Vitals: Temp Pulse Resp BP Pulse Ox 98.3 F 72 20 96/63 98 12/13/18 12:12 12/13/18 12:12 12/13/18 12:12 12/13/18 12:12 12/13/18 12:12 General appearance: no acute distress - Respiratory Respiratory effort: normal Respiratory: bilateral: CTA - Cardiovascular Rhythm: regular Heart Sounds: Present: S1 & S2 - Gastrointestinal General gastrointestinal: Present: soft, tender (mild ruq ttp), non-distended, normal bowel sounds - Neurologic Neurological: alert and oriented x3 - Psychiatric Psychiatric: appropriate mood/affect - Labs CBC & Chem 7: 12/12/18 06:57 12/12/18 06:57 - Imaging MRI: report reviewed
--- NOTE | 2018-12-13 14:57 | Progress Note ---
Assessment and Plan Assessment and plan: Acute choledocholithiasis -On IV antibiotics and Protonix -Lipase level normal -Abdominal ultrasound suggestive of choledocholithiasis, -HIDA scan suggestive of chronic cholecystitis -MRCP showed dilated CBD and distal filling defect, likely gallstone -Surgery and GI following Transaminitis -likely 2/2 cholecystitis with CBD dilatation versus HCV infection -will monitor level UTI -On IV antibiotic -Urine culture neg so far Diarrhea -Resolved Hypotension -likely narcotic induced, stable -on IVF, will monitor blood pressure Recent diagnosis of HCV Infection -For out-pt f/u H/o Anxiety -stable -home meds resumed Polysubstance abuse(tobacco and methamphetamine) -Patient counseled DVT prophylaxis with SCD Disposition: For discharge when cleared by surgery/GI teams History Interval history: Patient has no new complaints. Her abdominal pain has improved. Hospitalist Physical - Constitutional Vitals: Temp Pulse Resp BP Pulse Ox 98.3 F 72 20 96/63 98 12/13/18 12:12 12/13/18 12:12 12/13/18 12:12 12/13/18 12:12 12/13/18 12:12 General appearance: Present: no acute distress, well-nourished - EENT Eyes: Present: PERRL, EOM intact ENT: hearing intact, clear oral mucosa - Neck Neck: Present: supple - Respiratory Respiratory effort: normal Respiratory: bilateral: CTA - Cardiovascular Rhythm: regular Heart Sounds: Present: S1 & S2 - Extremities Extremities: No edema - Abdominal General gastrointestinal: soft, non-tender, non-distended, normal bowel sounds - Neurologic Neurologic: CNII-XII intact Results - Labs CBC & Chem 7: 12/12/18 06:57 12/12/18 06:57 Labs: Laboratory Last Values WBC 3.7 K/mm3 (4.5-11.0) L 12/12/18 06:57 RBC 3.93 M/mm3 (3.65-5.03) 12/12/18 06:57 Hgb 12.6 gm/dl (10.1-14.3) 12/12/18 06:57 Hct 35.9 % (30.3-42.9) 12/12/18 06:57 MCV 91 fl (79-97) 12/12/18 06:57 MCH 32 pg (28-32) 12/12/18 06:57 MCHC 35 % (30-34) H 12/12/18 06:57 RDW 13.4 % (13.2-15.2) 12/12/18 06:57 Plt Count 170 K/mm3 (140-440) 12/12/18 06:57 Lymph % (Auto) 24.7 % (13.4-35.0) 12/12/18 06:57 [place] % (Auto) 15.7 % (0.0-7.3) H 12/12/18 06:57 Eos % (Auto) 5.6 % (0.0-4.3) H 12/12/18 06:57 Baso % (Auto) 0.6 % (0.0-1.8) 12/12/18 06:57 Lymph # 0.9 K/mm3 (1.2-5.4) L 12/12/18 06:57 [place] # 0.6 K/mm3 (0.0-0.8) 12/12/18 06:57 Eos # 0.2 K/mm3 (0.0-0.4) 12/12/18 06:57 Baso # 0.0 K/mm3 (0.0-0.1) 12/12/18 06:57 Seg Neutrophils % 53.4 % (40.0-70.0) 12/12/18 06:57 Seg Neutrophils # 2.0 K/mm3 (1.8-7.7) 12/12/18 06:57 PT 14.3 Sec. (12.2-14.9) 12/12/18 06:57 INR 1.05 (0.87-1.13) 12/12/18 06:57 Sodium 141 mmol/L (137-145) 12/12/18 06:57 Potassium 4.1 mmol/L (3.6-5.0) 12/12/18 06:57 Chloride 104.8 mmol/L (98-107) 12/12/18 06:57 Carbon Dioxide 25 mmol/L (22-30) 12/12/18 06:57 Anion Gap 15 mmol/L 12/12/18 06:57 BUN 7 mg/dL (7-17) 12/12/18 06:57 Creatinine 0.6 mg/dL (0.7-1.2) L 12/12/18 06:57 Estimated GFR > 60 ml/min 12/12/18 06:57 BUN/Creatinine Ratio 12 % 12/12/18 06:57 Glucose 87 mg/dL (65-100) 12/12/18 06:57 Calcium 7.4 mg/dL (8.4-10.2) L 12/12/18 06:57 Magnesium 1.80 mg/dL (1.7-2.3) 12/12/18 06:57 Total Bilirubin 0.30 mg/dL (0.1-1.2) 12/12/18 06:57 AST 173 units/L (5-40) H 12/12/18 06:57 ALT 273 units/L (7-56) H 12/12/18 06:57 Alkaline Phosphatase 89 units/L (35-129) 12/12/18 06:57 Total Protein 5.8 g/dL (6.3-8.2) L 12/12/18 06:57 Albumin 3.3 g/dL (3.9-5) L 12/12/18 06:57 Albumin/Globulin Ratio 1.3 % 12/12/18 06:57 Lipase 20 units/L (13-60) 12/11/18 08:23 HCG, Qual Negative (Negative) 12/11/18 08:23 Urine Color [place] (Yellow) 12/11/18 08:17 Urine Turbidity Clear (Clear) 12/11/18 08:17 Urine pH 5.0 (5.0-7.0) 12/11/18 08:17 Ur Specific [place] 1.031 (1.003-1.030) H 12/11/18 08:17 Urine Protein 30 mg/dl mg/dL (Negative) 12/11/18 08:17 Urine Glucose (UA) Neg mg/dL (Negative) 12/11/18 08:17 Urine Ketones Neg mg/dL (Negative) 12/11/18 08:17 Urine Blood Neg (Negative) 12/11/18 08:17 Urine Nitrite Neg (Negative) 12/11/18 08:17 Urine Bilirubin Neg (Negative) 12/11/18 08:17 Urine Urobilinogen < 2.0 mg/dL (<2.0) 12/11/18 08:17 Ur Leukocyte Esterase Tr (Negative) 12/11/18 08:17 Urine WBC (Auto) 11.0 /HPF (0.0-6.0) H 12/11/18 08:17 Urine RBC (Auto) 5.0 /HPF (0.0-6.0) 12/11/18 08:17 U Epithel Cells (Auto) 4.0 /HPF (0-13.0) 12/11/18 08:17 Urine Bacteria (Auto) 1+ /HPF (Negative) 12/11/18 08:17 Urine Mucus 3+ /HPF 12/11/18 08:17 Hepatitis A IgM Ab Non-reactive (NonReactive) 12/12/18 06:57 Hep Bs Antigen Non-reactive (Negative) 12/12/18 06:57 Hep B Core IgM Ab Non-reactive (NonReactive) 12/12/18 06:57 Hepatitis C Antibody Reactive (NonReactive) A 12/12/18 06:57
[2018-12-13] MEDS: NORCO 5/325 PO PRN ×2 (15:06→20:29)
[2018-12-13] MEDS: BUSPAR PO SCH ×2 (17:47→22:32)
[2018-12-13] MEDS: celeXA PO SCH (17:47)
[2018-12-13] MEDS: DESYREL PO SCH (22:32)
[2018-12-14] MEDS: DILAUDID IV PRN ×4 (04:49→20:31)
[2018-12-14] MEDS: FLAGYL 500 MG/100 ML 500 MG/100 ML BAG IV SCH ×3 (05:00→22:29)
[2018-12-14] MEDS: NORCO 5/325 PO PRN ×4 (06:54→22:29)
[2018-12-14] MEDS: celeXA PO SCH (09:08)
[2018-12-14] MEDS: LEVAQUIN 750MG/150ML 750 MG/150 ML BAG IV SCH (09:08)
[2018-12-14] MEDS: BUSPAR PO SCH ×2 (09:08→22:29)
[2018-12-14] MEDS: PROTONIX IV SCH ×2 (09:08→22:30)
[2018-12-14] MEDS: NS/KCL 20MEQ 20 MEQ/1,000 ML BAG IV SCH (09:37)
[2018-12-14] MEDS: SODIUM CHLORIDE FLUSH SYRINGE 10 ML IV SCH (09:40)
--- NOTE | 2018-12-14 10:32 | Progress Note ---
Assessment and Plan Pt status quo. still c/o mild RUQ pain Abd soft, mild RUQ tenderness discussed with GI probable ERCP in am will postpone am surg await ERCP findings Selected Entries 12/14/18 05:15 Temperature 98.4 F Pulse Rate 66 Respiratory 14 Rate Blood Pressure 98/56 Laboratory Tests 12/11/18 12/11/18 12/12/18 08:23 08:23 06:57 WBC 11.6 H 3.7 L Hgb 12.6 Hct 35.9 Total Bilirubin 0.50 AST 178 H ALT 248 H Alkaline Phosphatase 81 12/12/18 06:57 WBC Hgb Hct Total Bilirubin 0.30 AST 173 H ALT 273 H Alkaline Phosphatase 89 Objective Vital Signs - 12hr 12/14/18 12/14/18 00:03 05:15 Temperature 97.3 F L 98.4 F Pulse Rate 77 66 Respiratory 16 14 Rate Blood Pressure 101/68 98/56 O2 Sat by Pulse 96 96 Oximetry - Labs 12/12/18 06:57 12/12/18 06:57
[2018-12-14 10:37] LABS: Alanine Aminotransferase 234 units/L (7-56); Albumin 3.3 g/dL (3.9-5); BUN/Creatinine Ratio 10; Blood Urea Nitrogen 8 mg/dL (7-17); Hemolysis Index 12
--- NOTE | 2018-12-14 10:59 | Gastroenterology Progress Note ---
Assessment and Plan 1. Elevated liver enzymes - hepatocellular pattern; possibly from recent hepatitis c infection. ? cbd filling defect/stone which may be contributing. alk phos elevated today. given pruritis, will r/o autoimmune serologies/ama as well although could be related to retained stone. 2. Cholecystitis - surgery following, eventual ccy may be needed 3. CBD dilatation - MRCP with dilated cbd and distal cbd filling defect; pt with GB stones as well. afebrile and stable. alk phos elevated today. check serologies above. will plan for likely ercp early this week, possibly tomorrow. 4. Hepatitis C - treatment as outpatient Subjective Date of service: 12/14/18 Principal diagnosis: elevated liver enzymes Interval history: pt seen and examined; less abd pain today; complains of pruritis at night time. Objective - Constitutional Vitals: Temp Pulse Resp BP Pulse Ox 98.4 F 66 14 98/56 96 12/14/18 05:15 12/14/18 05:15 12/14/18 05:15 12/14/18 05:15 12/14/18 05:15 General appearance: no acute distress - Respiratory Respiratory effort: normal Respiratory: bilateral: CTA - Cardiovascular Rhythm: regular Heart Sounds: Present: S1 & S2 - Gastrointestinal General gastrointestinal: Present: soft, non-tender, non-distended - Neurologic Neurological: alert and oriented x3 - Psychiatric Psychiatric: appropriate mood/affect - Labs CBC & Chem 7: 12/12/18 06:57 12/14/18 07:54 Labs: Laboratory Results - last 24 hr 12/14/18 07:54 Sodium 141 Potassium 4.6 Chloride 106.3 Carbon Dioxide 27 Anion Gap 12 BUN 8 Creatinine 0.8 Estimated GFR > 60 BUN/Creatinine Ratio 10 Glucose 87 Calcium 8.0 L Total Bilirubin 0.20 AST 104 H ALT 234 H Alkaline Phosphatase 142 H Total Protein 5.7 L Albumin 3.3 L Albumin/Globulin Ratio 1.4
--- NOTE | 2018-12-14 13:32 | Progress Note ---
Assessment and Plan Assessment and plan: Acute choledocholithiasis -On IV antibiotics and Protonix -Lipase level normal -Abdominal ultrasound suggestive of choledocholithiasis, -HIDA scan suggestive of chronic cholecystitis -MRCP showed dilated CBD and distal filling defect, likely gallstone -Patient is to have ERCP, then cholecystectomy -Surgery and GI following Transaminitis -likely 2/2 cholecystitis with CBD dilatation versus HCV infection -levels improved UTI -On IV antibiotic -Urine culture neg so far Diarrhea -Resolved Hypotension -likely narcotic induced -BP improved Recent diagnosis of HCV Infection -For out-pt f/u H/o Anxiety -stable on home meds Polysubstance abuse(tobacco and methamphetamine) -Patient counseled DVT prophylaxis with SCD Disposition: For discharge when cleared by surgery/GI teams History Interval history: Patient has no new complaints. Her abdominal pain has improved. Hospitalist Physical - Constitutional Vitals: Temp Pulse Resp BP Pulse Ox 97.8 F 70 18 106/59 96 12/14/18 11:49 12/14/18 11:49 12/14/18 11:49 12/14/18 11:49 12/14/18 11:49 General appearance: Present: no acute distress, well-nourished - EENT Eyes: Present: PERRL, EOM intact ENT: hearing intact, clear oral mucosa - Neck Neck: Present: supple - Respiratory Respiratory effort: normal Respiratory: bilateral: CTA - Cardiovascular Rhythm: regular Heart Sounds: Present: S1 & S2 - Extremities Extremities: No edema - Abdominal General gastrointestinal: soft, non-tender, non-distended, normal bowel sounds - Neurologic Neurologic: CNII-XII intact Results - Labs CBC & Chem 7: 12/12/18 06:57 12/14/18 07:54 Labs: Laboratory Last Values WBC 3.7 K/mm3 (4.5-11.0) L 12/12/18 06:57 RBC 3.93 M/mm3 (3.65-5.03) 12/12/18 06:57 Hgb 12.6 gm/dl (10.1-14.3) 12/12/18 06:57 Hct 35.9 % (30.3-42.9) 12/12/18 06:57 MCV 91 fl (79-97) 12/12/18 06:57 MCH 32 pg (28-32) 12/12/18 06:57 MCHC 35 % (30-34) H 12/12/18 06:57 RDW 13.4 % (13.2-15.2) 12/12/18 06:57 Plt Count 170 K/mm3 (140-440) 12/12/18 06:57 Lymph % (Auto) 24.7 % (13.4-35.0) 12/12/18 06:57 [place] % (Auto) 15.7 % (0.0-7.3) H 12/12/18 06:57 Eos % (Auto) 5.6 % (0.0-4.3) H 12/12/18 06:57 Baso % (Auto) 0.6 % (0.0-1.8) 12/12/18 06:57 Lymph # 0.9 K/mm3 (1.2-5.4) L 12/12/18 06:57 [place] # 0.6 K/mm3 (0.0-0.8) 12/12/18 06:57 Eos # 0.2 K/mm3 (0.0-0.4) 12/12/18 06:57 Baso # 0.0 K/mm3 (0.0-0.1) 12/12/18 06:57 Seg Neutrophils % 53.4 % (40.0-70.0) 12/12/18 06:57 Seg Neutrophils # 2.0 K/mm3 (1.8-7.7) 12/12/18 06:57 PT 14.3 Sec. (12.2-14.9) 12/12/18 06:57 INR 1.05 (0.87-1.13) 12/12/18 06:57 Sodium 141 mmol/L (137-145) 12/14/18 07:54 Potassium 4.6 mmol/L (3.6-5.0) 12/14/18 07:54 Chloride 106.3 mmol/L (98-107) 12/14/18 07:54 Carbon Dioxide 27 mmol/L (22-30) 12/14/18 07:54 Anion Gap 12 mmol/L 12/14/18 07:54 BUN 8 mg/dL (7-17) 12/14/18 07:54 Creatinine 0.8 mg/dL (0.7-1.2) 12/14/18 07:54 Estimated GFR > 60 ml/min 12/14/18 07:54 BUN/Creatinine Ratio 10 % 12/14/18 07:54 Glucose 87 mg/dL (65-100) 12/14/18 07:54 Calcium 8.0 mg/dL (8.4-10.2) L 12/14/18 07:54 Magnesium 1.80 mg/dL (1.7-2.3) 12/12/18 06:57 Total Bilirubin 0.20 mg/dL (0.1-1.2) 12/14/18 07:54 AST 104 units/L (5-40) H 12/14/18 07:54 ALT 234 units/L (7-56) H 12/14/18 07:54 Alkaline Phosphatase 142 units/L (35-129) H 12/14/18 07:54 Total Protein 5.7 g/dL (6.3-8.2) L 12/14/18 07:54 Albumin 3.3 g/dL (3.9-5) L 12/14/18 07:54 Albumin/Globulin Ratio 1.4 % 12/14/18 07:54 Lipase 20 units/L (13-60) 12/11/18 08:23 HCG, Qual Negative (Negative) 12/11/18 08:23 Urine Color [place] (Yellow) 12/11/18 08:17 Urine Turbidity Clear (Clear) 12/11/18 08:17 Urine pH 5.0 (5.0-7.0) 12/11/18 08:17 Ur Specific [place] 1.031 (1.003-1.030) H 12/11/18 08:17 Urine Protein 30 mg/dl mg/dL (Negative) 12/11/18 08:17 Urine Glucose (UA) Neg mg/dL (Negative) 12/11/18 08:17 Urine Ketones Neg mg/dL (Negative) 12/11/18 08:17 Urine Blood Neg (Negative) 12/11/18 08:17 Urine Nitrite Neg (Negative) 12/11/18 08:17 Urine Bilirubin Neg (Negative) 12/11/18 08:17 Urine Urobilinogen < 2.0 mg/dL (<2.0) 12/11/18 08:17 Ur Leukocyte Esterase Tr (Negative) 12/11/18 08:17 Urine WBC (Auto) 11.0 /HPF (0.0-6.0) H 12/11/18 08:17 Urine RBC (Auto) 5.0 /HPF (0.0-6.0) 12/11/18 08:17 U Epithel Cells (Auto) 4.0 /HPF (0-13.0) 12/11/18 08:17 Urine Bacteria (Auto) 1+ /HPF (Negative) 12/11/18 08:17 Urine Mucus 3+ /HPF 12/11/18 08:17 Hepatitis A IgM Ab Non-reactive (NonReactive) 12/12/18 06:57 Hep Bs Antigen Non-reactive (Negative) 12/12/18 06:57 Hep B Core IgM Ab Non-reactive (NonReactive) 12/12/18 06:57 Hepatitis C Antibody Reactive (NonReactive) A 12/12/18 06:57
[2018-12-14] MEDS: DESYREL PO SCH (22:29)
[2018-12-15] MEDS: DILAUDID IV PRN ×5 (00:22→19:50)
[2018-12-15] MEDS: SODIUM CHLORIDE FLUSH SYRINGE 10 ML IV SCH ×3 (01:50→21:05)
[2018-12-15] MEDS: FLAGYL 500 MG/100 ML 500 MG/100 ML BAG IV SCH ×4 (04:30→21:04)
[2018-12-15 07:34] LABS: Basophils % (Auto) 0.7 % (0.0-1.8); Eosinophils # (Auto) 0.2 K/mm3 (0.0-0.4); Eosinophils % (Auto) 6.3 % (0.0-4.3); Hematocrit 35.6 % (30.3-42.9); Hemoglobin 12.6 gm/dl (10.1-14.3); Lymphocytes # (Auto) 1.7 K/mm3 (1.2-5.4); Lymphocytes % (Auto) 44.1 % (13.4-35.0); Mean Corpuscular HGB Conc 36 % (30-34); Mean Corpuscular Volume 92 fl (79-97); Monocytes # (Auto) 0.4 K/mm3 (0.0-0.8); Monocytes % (Auto) 10.7 % (0.0-7.3); Platelet Count 188 K/mm3 (140-440); Red Cell Distribution Width 13.4 % (13.2-15.2)
[2018-12-15] MEDS: PROTONIX IV SCH ×2 (10:17→21:04)
[2018-12-15] MEDS: LEVAQUIN 750MG/150ML 750 MG/150 ML BAG IV SCH (10:18)
[2018-12-15] MEDS ORDERED: NACL 0.9% 100 ML ONE (11:06)
[2018-12-15] MEDS ORDERED: WATER FOR IRRIG STERILE IR ONE (11:06)
[2018-12-15] MEDS ORDERED: DIPRIVAN 10 MG/ML IV ONE (11:17)
[2018-12-15] MEDS ORDERED: SUBLIMAZE ONE (11:19)
[2018-12-15] MEDS: NACL 0.9% 1000 ML 1,000 ML IV SCH (11:40)
--- NOTE | 2018-12-15 11:47 | Anesthesia Day of Surgery ---
Anesthesia Day of Surgery - Day of Surgery Patient H&P Reviewed: Yes Patient is NPO: Yes Beta Blockers: No Cardiac Clearance: No Pulmonary Clearance: No Shadi's Test: N/A
--- NOTE | 2018-12-15 11:51 | Anesthesia Consultation ---
Anesthesia Consult and Med Hx Date of service: 12/15/18 - Airway Anesthetic Teeth Evaluation: Good ROM Head & Neck: Adequate Mental/Hyoid Distance: Adequate Mallampati Class: Class II Intubation Access Assessment: Probably Good - Pulmonary Exam CTA: Yes - Cardiac Exam Cardiac Exam: RRR - Pre-Operative Health Status ASA Pre-Surgery Classification: ASA2 Proposed Anesthetic Plan: General - Pulmonary Hx Smoking: Yes Hx Asthma: No COPD: No Hx Pneumonia: No Hx Sleep Apnea: No - Cardiovascular System Hx Hypertension: No Hx Coronary Artery Disease: No Hx Heart Attack/AMI: No Hx Angina: No Hx Percutaneous Transluminal Coronary Angioplasty (PTCA): No Hx Pacemaker: No Hx Internal Defibrillator: No Hx Valvular Heart Disease: No Hx Heart Murmur: No Hx Peripheral Vascular Disease: No - Central Nervous System Hx Seizures: Yes (Remote hx, >6years) CVA: No Hx Psychiatric Problems: No - Gastrointestinal Hx Ulcer: No - Endocrine Hx Renal Disease: No Hx End Stage Renal Disease: No Hx Cirrhosis: No Hx Liver Disease: Yes (Hep C) Hx Hypothyroidism: No Hx Hyperthyroidism: No - Hematic Hx Anemia: No Hx Sickle Cell Disease: No - Other Systems Hx Alcohol Use: Yes Hx Substance Use: Yes (Methampheetamines, stopped 8 months ago) Hx Cancer: No
[2018-12-15] MEDS ORDERED: XYLOCAINE MPF 2% ONE (12:42)
--- NOTE | 2018-12-15 13:10 | Post Operative Note ---
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 Ampulla WNL 2. PD injected and cannulated with Dreamtome 3. CBD cannulated with Dreamtome/0.035guidewire - Possible small filling defect distal - Sphincterotomy medium size performed - 12mm balloon swept twice through CHD/CBD with removal of air bubbles 4. No filling of gallbladder with cholangiogram Procedure: ERCP with biliary sphincterotomy and balloon sweep of CBD Anesthesia: MAC Surgeon: PABLO ANN Estimated blood loss: minimal Pathology: none Specimen disposition: other (N/A) Condition: stable Disposition: floor (Recs: 1. OK to advance to clears. 2. OK to proceed to CCY tomorrow. 3. Will have her f/u in the clinic for Hep C treatment.)
--- NOTE | 2018-12-15 13:27 | Progress Note ---
Assessment and Plan Pt just completed successful ERCP. spoke to pt in RR also spoke with GI Ampullary stenosis. sphincterotomy performed. stable will schedule for lap GB in am Selected Entries 12/15/18 11:24 Temperature 98.2 F Pulse Rate 67 Respiratory 15 Rate Blood Pressure 107/69 Laboratory Tests 12/15/18 07:02 WBC 3.7 L Hgb 12.6 Hct 35.6 Objective Vital Signs - 12hr 12/15/18 12/15/18 12/15/18 05:07 05:10 11:21 Temperature 97.5 F L 98.2 F Pulse Rate 59 L 67 Respiratory 18 15 Rate Blood Pressure 89/53 107/69 O2 Sat by Pulse 100 97 Oximetry 12/15/18 11:24 Temperature 98.2 F Pulse Rate 67 Respiratory 15 Rate Blood Pressure 107/69 O2 Sat by Pulse 97 Oximetry - Labs 12/15/18 07:02 12/14/18 07:54
--- NOTE | 2018-12-15 13:42 | Operative Report ---
PROCEDURE PERFORMED: Endoscopic retrograde cholangiopancreatography with biliary sphincterotomy and balloon sweeping of the common bile duct. PREOPERATIVE DIAGNOSES: Gallstones, abnormal liver enzymes, abnormal magnetic resonance cholangiopancreatography. POSTOPERATIVE DIAGNOSIS: Ampullary stenosis, but otherwise normal. ENDOSCOPIST: Bernabe Horton M.D. INSTRUMENT: Olympus video endoscope. MEDICATIONS: MAC anesthesia by [facility]. COMPLICATIONS: No apparent complications. ESTIMATED BLOOD LOSS: Minimal. SPECIMENS: None. IMPLANTS: None. ASSISTANTS: None. CONDITION AT COMPLETION: Stable. TECHNIQUE: The patient was informed of the risks and benefits of the procedure. She signed the informed consent to proceed. She was placed in the prone position. The above sedative medications were given. Her vital signs remained stable throughout the procedure. The instrument was advanced from the mouth to the ampulla under direct visualization. The bowel was then insufflated. The ampulla was normal in shape and size. The pancreatic duct was originally injected and cannulated using the Dreamtome and a 0.035 guidewire. We then repositioned the cannula and advanced into the common bile duct using the Dreamtome and a 0.035 guidewire. Cholangiogram shows a mildly dilated common bile duct to 7 mm and a possible small filling defect at the most distal portion. A medium-sized sphincterotomy was done and a 12 mm balloon was swept twice through the common bile duct and common hepatic duct with removal of air bubbles, but no convincing evidence of a gallstone. It was noted that there was no filling of the gallbladder with cholangiogram. The procedure was then terminated. FINDINGS: 1. Normal ampulla. 2. Pancreatic duct injected and cannulated using a Dreamtome/0.035 guidewire. 3. Common bile duct cannulated with the Dreamtome/0.035 guidewire. A. Mild tapering of the distal duct consistent with ampullary stenosis B. Possible small filling defect in the most distal portion. C. Medium sized sphincterotomy was performed. D. A 12 mm balloon swept twice through the common hepatic and common bile duct with removal of air bubbles, likely the small filling defect noted on the cholangiogram. 4. No obvious filling of the gallbladder during the cholangiogram portion. RECOMMENDATIONS: 1. Okay to advance to clear liquid diet. 2. Okay to proceed to cholecystectomy tomorrow. 3. We will have the patient follow up in clinic for treatment of her hepatitis C. JOB# [id number] ALCIDES/NTS
[2018-12-15] MEDS: BUSPAR PO SCH ×2 (16:01→21:06)
[2018-12-15] MEDS: celeXA PO SCH (16:02)
--- NOTE | 2018-12-15 16:11 | Progress Note ---
Subjective Date of service: 12/15/18 Principal diagnosis: elevated liver enzymes Interval history: Patient is A&O, NAD Complains of right upper abdominal quadrant pain She denies nausea or vomiting melena fever or chills All interdisciplinary notes reviewed Acute choledocholithiasis -On IV antibiotics and Protonix -Lipase level normal -Abdominal ultrasound suggestive of choledocholithiasis, -HIDA scan suggestive of chronic cholecystitis -MRCP showed dilated CBD and distal filling defect, likely gallstone -Status post ERCP -Findings reviewed Mild distal ampullary stenosis Scheduled for cholecystectomy tomorrow Transaminitis -likely 2/2 cholecystitis with CBD dilatation versus HCV infection -levels improved UTI -On IV antibiotic -Urine culture neg so far Diarrhea -Resolved Hypotension -likely narcotic induced -BP improved Recent diagnosis of HCV Infection -For out-pt f/u H/o Anxiety -stable on home meds Polysubstance abuse(tobacco and methamphetamine) -Patient counseled DVT prophylaxis with SCD Objective HEENT: Normocephalic pupils are round reacting to light throat is clear Neck: Supple no significant adenopathy no thyromegaly Lungs: Clear to auscultation Heart S1-S2 regular rate and rhythm Abdomen: Soft there is mild right upper quadrant tenderness Extremities there is no leg edema [employer] patient is alert and oriented no focal deficit Psychiatry normal mood and affect Objective - Constitutional Vitals: Vital Signs - 12hr 12/15/18 12/15/18 12/15/18 05:07 05:10 11:21 Temperature 97.5 F L 98.2 F Pulse Rate 59 L 67 Respiratory 18 15 Rate Blood Pressure 89/53 107/69 O2 Sat by Pulse 100 97 Oximetry 12/15/18 12/15/18 12/15/18 11:24 13:12 13:27 Temperature 98.2 F 97.6 F Pulse Rate 67 71 69 Respiratory 15 16 15 Rate Blood Pressure 107/69 107/65 108/68 O2 Sat by Pulse 97 100 99 Oximetry 12/15/18 12/15/18 13:42 14:18 Temperature Pulse Rate 70 Respiratory 13 18 Rate Blood Pressure 102/71 O2 Sat by Pulse 98 100 Oximetry - Labs CBC & Chem 7: 12/15/18 07:02 12/14/18 07:54 Labs: Abnormal lab results 12/15/18 Range/Units 07:02 WBC 3.7 L (4.5-11.0) K/mm3 MCH 33 H (28-32) pg MCHC 36 H (30-34) % Lymph % (Auto) 44.1 H (13.4-35.0) % [place] % (Auto) 10.7 H (0.0-7.3) % Eos % (Auto) 6.3 H (0.0-4.3) % Seg Neutrophils % 38.2 L (40.0-70.0) % Seg Neutrophils # 1.4 L (1.8-7.7) K/mm3
[2018-12-15] MEDS: ZOFRAN IV PRN (17:21)
[2018-12-15] MEDS: NORCO 5/325 PO PRN ×2 (17:21→23:01)
--- NOTE | 2018-12-15 17:34 | Anesthesia Consultation ---
Anesthesia Consult and Med Hx Date of service: 12/15/18 - Airway Anesthetic Teeth Evaluation: Good ROM Head & Neck: Adequate Mental/Hyoid Distance: Adequate Mallampati Class: Class II Intubation Access Assessment: Possibly Difficult - Pulmonary Exam CTA: Yes - Cardiac Exam Cardiac Exam: RRR - Pre-Operative Health Status ASA Pre-Surgery Classification: ASA2 Proposed Anesthetic Plan: General - Pulmonary Hx Smoking: Yes Hx Asthma: No Hx Respiratory Symptoms: No COPD: No Hx Sleep Apnea: No - Cardiovascular System Hx Hypertension: No Hx Heart Attack/AMI: No Hx Percutaneous Transluminal Coronary Angioplasty (PTCA): No Hx Cardia Arrhythmia: No - Central Nervous System Hx Seizures: Yes (Remote hx, >6yrs ago) CVA: No Hx Psychiatric Problems: No - Endocrine Hx Renal Disease: No Hx Cirrhosis: No Hx Liver Disease: Yes (HCV) Hx Insulin Dependent Diabetes: No Hx Non-Insulin Dependent Diabetes: No Hx Thyroid Disease: No - Other Systems Hx Substance Use: Yes (last methamphetamine use 8 months ago) Hx Cancer: No Hx Obesity: Yes - Additional Comments Anesthesia Medical History Comments: No hx anesthetic complications.
[2018-12-15] MEDS: DESYREL PO SCH (21:04)
[2018-12-16] MEDS: NACL 0.9% 1000 ML 1,000 ML IV SCH (01:37)
[2018-12-16] MEDS: NORCO 5/325 PO PRN ×4 (04:13→21:59)
[2018-12-16] MEDS: FLAGYL 500 MG/100 ML 500 MG/100 ML BAG IV SCH ×3 (05:19→22:05)
[2018-12-16] MEDS ORDERED: NEURONTIN PO NR (06:00)
[2018-12-16] MEDS ORDERED: VERSED IV NR (06:00)
[2018-12-16] MEDS ORDERED: TRANSDERM-SCOP TD NR (06:00)
--- NOTE | 2018-12-16 07:38 | Fluoroscopy Report ---
FLUOROSCOPY ERCP PANCREATIC DUCT History: Choledocholithiasis. Findings: Fluoroscopy was provided by radiology during ERCP by gastroenterology. 8 fluoroscopic images were saved which demonstrate contrast agent within the common bile duct and central biliary ducts. Balloon sweep of the common bile duct was performed. No filling defect or abnormal dilatation is demonstrated on the final image. Please correlate with the procedural report as needed.
[2018-12-16 07:56] LABS: Basophils % (Auto) 0.7 % (0.0-1.8); Eosinophils # (Auto) 0.3 K/mm3 (0.0-0.4); Eosinophils % (Auto) 6.7 % (0.0-4.3); Hematocrit 37.4 % (30.3-42.9); Hemoglobin 12.9 gm/dl (10.1-14.3); Lymphocytes # (Auto) 1.6 K/mm3 (1.2-5.4); Lymphocytes % (Auto) 35.2 % (13.4-35.0); Mean Corpuscular HGB Conc 35 % (30-34); Mean Corpuscular Volume 92 fl (79-97); Monocytes # (Auto) 0.4 K/mm3 (0.0-0.8); Monocytes % (Auto) 9.7 % (0.0-7.3); Platelet Count 196 K/mm3 (140-440); Red Blood Count 4.05 M/mm3 (3.65-5.03); Red Cell Distribution Width 13.2 % (13.2-15.2)
[2018-12-16 08:06] LABS: Alanine Aminotransferase 132 units/L (7-56); Albumin 3.2 g/dL (3.9-5); BUN/Creatinine Ratio 10; Blood Urea Nitrogen 6 mg/dL (7-17); Hemolysis Index 5
--- NOTE | 2018-12-16 09:58 | Gastroenterology Progress Note ---
<WAQAS OBRIEN - Last Filed: 12/16/18 10:32> Assessment and Plan 1.choledocholithiasis? 2.elevated LFTs 3.Cholecystitis 4.Hx of hepatitis C (untreated) -afebrile -WBC WNL -H/H, plt, and INR WNL- no active signs of bleeding -lipase WNL -LFTs improving s/p ERCP-T.lawson 0.30, AST 44, ALT 132, alk phos 103 -HCV genotype- 1a; VL pending -abd U/S showed gallstones and mildly dilated CBD (6.4mm) suggestive of choledocholithiasis -HIDA scan showed chronic cholecystitis -MRCP with dilated cbd and distal cbd filling defect -etiology- hepatocellular pattern-possibly from recent hepatitis C infection, also ?CBD filling defect which may be contributing -s/p ERCP with sphincterotomy/balloon sweep of CBD which revealed ampullary veena nosis; no gross stone -clinically, patient is stable this am with abd pain unchanged. Mild nausea but no vomiting. -continue PPI and supportive care -surgery following with cholecystectomy pending for today -further management per surgery -recommend follow up in clinic upon discharge for Hep C treatment (discussed need for f/u with patient with understanding voiced-office information/card given to patient) -will sign off, please call if needed Subjective Date of service: 12/16/18 Principal diagnosis: elevated liver enzymes, Hep C Interval history: Patient sitting up in bed this am putting on her makeup w/o distress. No change in abd pain. Has continued mild nausea but no vomiting. Objective - Constitutional Vitals: Temp Pulse Resp BP Pulse Ox 97.7 F 62 18 100/66 95 12/16/18 04:13 12/16/18 04:13 12/16/18 08:28 12/16/18 04:13 12/16/18 04:13 General appearance: no acute distress - EENT Eyes: PERRL, EOM intact ENT: hearing intact - Respiratory Respiratory: bilateral: CTA - Cardiovascular Rhythm: regular Heart Sounds: Present: S1 & S2 - Gastrointestinal General gastrointestinal: Present: soft, non-tender, non-distended, normal bowel sounds - Neurologic Neurological: alert and oriented x3 - Labs CBC & Chem 7: 12/16/18 07:10 12/16/18 07:10 Labs: Laboratory Results - last 24 hr 12/12/18 12/16/18 12/16/18 06:57 07:10 07:10 WBC 4.5 RBC 4.05 Hgb 12.9 Hct 37.4 MCV 92 MCH 32 MCHC 35 H RDW 13.2 Plt Count 196 Lymph % (Auto) 35.2 H [place] % (Auto) 9.7 H Eos % (Auto) 6.7 H Baso % (Auto) 0.7 Lymph # 1.6 [place] # 0.4 Eos # 0.3 Baso # 0.0 Seg Neutrophils % 47.7 Seg Neutrophils # 2.1 Sodium 139 Potassium 3.8 Chloride 103.0 Carbon Dioxide 26 Anion Gap 14 BUN 6 L Creatinine 0.6 L Estimated GFR > 60 BUN/Creatinine Ratio 10 Glucose 87 Calcium 8.0 L Total Bilirubin 0.30 AST 44 H ALT 132 H Alkaline Phosphatase 103 Total Protein 5.7 L Albumin 3.2 L Albumin/Globulin Ratio 1.3 Hepatitis C Genotype 1a <HARSHIL MCKINNON - Last Filed: 12/16/18 13:33> Assessment and Plan Pt seen and examined. Agree with note above. F/u in GI clinic after discharge for further management of hepatitis c and elevated liver enzymes. RTC in 2 weeks after d/c. will s/o, please call as needed. Objective - Constitutional Vitals: Temp Pulse Resp BP Pulse Ox 98.7 F 62 16 120/88 99 12/16/18 11:55 12/16/18 11:55 12/16/18 12:42 12/16/18 11:55 12/16/18 11:55 - Labs CBC & Chem 7: 12/16/18 07:10 12/16/18 07:10 Labs: Laboratory Results - last 24 hr 12/12/18 12/16/18 12/16/18 06:57 07:10 07:10 WBC 4.5 RBC 4.05 Hgb 12.9 Hct 37.4 MCV 92 MCH 32 MCHC 35 H RDW 13.2 Plt Count 196 Lymph % (Auto) 35.2 H [place] % (Auto) 9.7 H Eos % (Auto) 6.7 H Baso % (Auto) 0.7 Lymph # 1.6 [place] # 0.4 Eos # 0.3 Baso # 0.0 Seg Neutrophils % 47.7 Seg Neutrophils # 2.1 Sodium 139 Potassium 3.8 Chloride 103.0 Carbon Dioxide 26 Anion Gap 14 BUN 6 L Creatinine 0.6 L Estimated GFR > 60 BUN/Creatinine Ratio 10 Glucose 87 Calcium 8.0 L Total Bilirubin 0.30 AST 44 H ALT 132 H Alkaline Phosphatase 103 Total Protein 5.7 L Albumin 3.2 L Albumin/Globulin Ratio 1.3 Hepatitis C Genotype 1a
[2018-12-16] MEDS: BUSPAR PO SCH (10:00)
[2018-12-16] MEDS ORDERED: XYLOCAINE 2% UROJET ONE (11:08)
[2018-12-16] MEDS: PROTONIX IV SCH ×2 (11:32→21:59)
[2018-12-16] MEDS: SODIUM CHLORIDE FLUSH SYRINGE 10 ML IV SCH ×2 (11:32→22:05)
[2018-12-16] MEDS: LEVAQUIN 750MG/150ML 750 MG/150 ML BAG IV SCH (11:32)
[2018-12-16] MEDS ORDERED: DEMEROL IV PRN (12:14)
[2018-12-16] MEDS ORDERED: DILAUDID IV PRN (12:14)
--- NOTE | 2018-12-16 12:14 | Anesthesia Day of Surgery ---
Anesthesia Day of Surgery - Day of Surgery Patient Examined: Yes Patient H&P Reviewed: Yes Patient is NPO: Yes
[2018-12-16] MEDS ORDERED: DILAUDID ONE (12:27)
[2018-12-16] MEDS ORDERED: DIPRIVAN 10 MG/ML IV ONE (12:27)
[2018-12-16] MEDS ORDERED: ZEMURON IV ONE (12:27)
[2018-12-16] MEDS ORDERED: QUELICIN ONE (12:27)
[2018-12-16] MEDS ORDERED: XYLOCAINE MPF 2% ONE (12:27)
[2018-12-16] MEDS: LACTATED RINGERS 1,000 ML IV SCH ×2 (12:41→19:46)
[2018-12-16] MEDS ORDERED: MARCAINE-EPI 0.5%-1:200,000 INFILTRATI ONE (13:23)
[2018-12-16] MEDS ORDERED: MARCAINE-EPI/PF 0.5%-1:200,000 INFILTRATI ONE (13:37)
[2018-12-16] MEDS ORDERED: NACL 0.9% IR ONE (13:38)
[2018-12-16] MEDS ORDERED: ROBINUL ONE (13:54)
[2018-12-16] MEDS ORDERED: BLOXIVERZ ONE (13:54)
[2018-12-16] MEDS ORDERED: ZOFRAN ONE (13:54)
--- NOTE | 2018-12-16 14:12 | Operative Report ---
PREOPERATIVE DIAGNOSIS: Gallbladder disease. POSTOPERATIVE DIAGNOSIS: Gallbladder disease. PROCEDURE: Laparoscopic cholecystectomy. SURGEON: Radhames Wilson MD MECHANICAL DOOR REPAIRER: . ANESTHESIA: General. ESTIMATED BLOOD LOSS: Minimal. DRAINS: No drains. COMPLICATIONS: No complications. DESCRIPTION OF PROCEDURE: The patient was taken to the operating room, prepped and draped in usual sterile fashion. A Veress needle was inserted and CO2 insufflation begun. A 5 mm trocar was inserted and camera inserted. All other trocars were inserted under direct visualization. Gallbladder was then grasped at the fundus and infundibulum and retracted towards the right subphrenic space. Gallbladder was noted to be impacted with stones. Dissection was then carried out along Calot's triangle. The cystic duct and artery were delineated in their entire course. Both were then doubly clipped and transected. Hook electrocautery was used to dissect the gallbladder from the overlying liver bed. Prior to complete removal, the liver bed was inspected for bleeding and noted to be dry. The cystic duct and artery stumps were once again visualized. The clips were noted to be securely in place with no evidence of bleeding or bile leak. Gallbladder was then completely freed and brought out through the subxiphoid port. This area was inspected for bleeding and noted to be dry. Subxiphoid trocar was then gently reinserted. All other 5 mm ports were then removed under direct visualization. No bleeding or oozing noted. Subxiphoid trocar was used to expel the CO2 and the trocar removed. The fascia at this site was closed with a [id number] 0 Vicryl suture. The skin at all port sites was closed with subcuticular 4-0 Vicryl. A 0.5% Marcaine was infiltrated over the port site for postoperative pain relief. Steri-Strips, 2 x 2 and Tegaderms applied. The patient tolerated the procedure well. JOB# [id number] PIPE/JENNIFER
--- NOTE | 2018-12-16 17:07 | Post Anesthesia Evaluation ---
- Post Anesthesia Evaluation Patient Participated: Yes Airway Patent: Yes Stable Respiratory Function: Yes Nausea/Vomiting: No Temp > 96.8F: Yes Pain Manageable: Yes Adequeate Hydration: Yes Anesthesia Complications: No
[2018-12-16] MEDS: celeXA PO SCH (19:03)
--- NOTE | 2018-12-16 19:28 | Progress Note ---
Assessment and Plan Assessment and plan: Acute choledocholithiasis: Cholecystectomy today -On IV antibiotics and Protonix -Lipase level normal -Abdominal ultrasound suggestive of choledocholithiasis, -HIDA scan suggestive of chronic cholecystitis -MRCP showed dilated CBD and distal filling defect, likely gallstone -Status post ERCP -Findings reviewed Mild distal ampullary stenosis Scheduled for cholecystectomy today Transaminitis -likely 2/2 cholecystitis with CBD dilatation versus HCV infection -levels improved UTI -On IV antibiotic -Urine culture neg so far Diarrhea -Resolved Hypotension -likely narcotic induced -BP improved Recent diagnosis of HCV Infection -For out-pt f/u H/o Anxiety -stable on home meds Polysubstance abuse(tobacco and methamphetamine) -Patient counseled DVT prophylaxis with SCD History Interval history: Patient seen and examined medical records reviewed Schedule for laparoscopic cholecystectomy today patient feels better but in no new complaints Vital signs reviewed Hospitalist Physical - Constitutional Vitals: Temp Pulse Resp BP Pulse Ox 98 F 68 20 95/51 97 12/16/18 15:00 12/16/18 15:00 12/16/18 16:51 12/16/18 15:00 12/16/18 15:00 General appearance: Present: no acute distress, well-nourished - EENT Eyes: Present: PERRL, EOM intact - Neck Neck: Present: supple, normal ROM - Respiratory Respiratory effort: normal Respiratory: bilateral: diminished, negative: rales, rhonchi, wheezing - Cardiovascular Rhythm: regular Heart Sounds: Present: S1 & S2 - Extremities Extremities: no ischemia, No edema Peripheral Pulses: within normal limits - Abdominal General gastrointestinal: soft, non-tender, non-distended, normal bowel sounds - Integumentary Integumentary: Present: clear, warm - Psychiatric Psychiatric: appropriate mood/affect, cooperative - Neurologic Neurologic: CNII-XII intact, moves all extremities Results - Labs CBC & Chem 7: 12/17/18 04:37 12/17/18 04:37 Labs: Laboratory Last Values WBC 4.5 K/mm3 (4.5-11.0) 12/16/18 07:10 RBC 4.05 M/mm3 (3.65-5.03) 12/16/18 07:10 Hgb 12.9 gm/dl (10.1-14.3) 12/16/18 07:10 Hct 37.4 % (30.3-42.9) 12/16/18 07:10 MCV 92 fl (79-97) 12/16/18 07:10 MCH 32 pg (28-32) 12/16/18 07:10 MCHC 35 % (30-34) H 12/16/18 07:10 RDW 13.2 % (13.2-15.2) 12/16/18 07:10 Plt Count 196 K/mm3 (140-440) 12/16/18 07:10 Lymph % (Auto) 35.2 % (13.4-35.0) H 12/16/18 07:10 [place] % (Auto) 9.7 % (0.0-7.3) H 12/16/18 07:10 Eos % (Auto) 6.7 % (0.0-4.3) H 12/16/18 07:10 Baso % (Auto) 0.7 % (0.0-1.8) 12/16/18 07:10 Lymph # 1.6 K/mm3 (1.2-5.4) 12/16/18 07:10 [place] # 0.4 K/mm3 (0.0-0.8) 12/16/18 07:10 Eos # 0.3 K/mm3 (0.0-0.4) 12/16/18 07:10 Baso # 0.0 K/mm3 (0.0-0.1) 12/16/18 07:10 Seg Neutrophils % 47.7 % (40.0-70.0) 12/16/18 07:10 Seg Neutrophils # 2.1 K/mm3 (1.8-7.7) 12/16/18 07:10 PT 14.3 Sec. (12.2-14.9) 12/12/18 06:57 INR 1.05 (0.87-1.13) 12/12/18 06:57 Sodium 139 mmol/L (137-145) 12/16/18 07:10 Potassium 3.8 mmol/L (3.6-5.0) 12/16/18 07:10 Chloride 103.0 mmol/L (98-107) 12/16/18 07:10 Carbon Dioxide 26 mmol/L (22-30) 12/16/18 07:10 Anion Gap 14 mmol/L 12/16/18 07:10 BUN 6 mg/dL (7-17) L 12/16/18 07:10 Creatinine 0.6 mg/dL (0.7-1.2) L 12/16/18 07:10 Estimated GFR > 60 ml/min 12/16/18 07:10 BUN/Creatinine Ratio 10 % 12/16/18 07:10 Glucose 87 mg/dL (65-100) 12/16/18 07:10 Calcium 8.0 mg/dL (8.4-10.2) L 12/16/18 07:10 Magnesium 1.80 mg/dL (1.7-2.3) 12/12/18 06:57 Total Bilirubin 0.30 mg/dL (0.1-1.2) 12/16/18 07:10 AST 44 units/L (5-40) H 12/16/18 07:10 ALT 132 units/L (7-56) H 12/16/18 07:10 Alkaline Phosphatase 103 units/L (35-129) 12/16/18 07:10 Total Protein 5.7 g/dL (6.3-8.2) L 12/16/18 07:10 Albumin 3.2 g/dL (3.9-5) L 12/16/18 07:10 Albumin/Globulin Ratio 1.3 % 12/16/18 07:10 Lipase 20 units/L (13-60) 12/11/18 08:23 HCG, Qual Negative (Negative) 12/11/18 08:23 Urine Color Emely (Yellow) 12/11/18 08:17 Urine Turbidity Clear (Clear) 12/11/18 08:17 Urine pH 5.0 (5.0-7.0) 12/11/18 08:17 Ur Specific [place] 1.031 (1.003-1.030) H 12/11/18 08:17 Urine Protein 30 mg/dl mg/dL (Negative) 12/11/18 08:17 Urine Glucose (UA) Neg mg/dL (Negative) 12/11/18 08:17 Urine Ketones Neg mg/dL (Negative) 12/11/18 08:17 Urine Blood Neg (Negative) 12/11/18 08:17 Urine Nitrite Neg (Negative) 12/11/18 08:17 Urine Bilirubin Neg (Negative) 12/11/18 08:17 Urine Urobilinogen < 2.0 mg/dL (<2.0) 12/11/18 08:17 Ur Leukocyte Esterase Tr (Negative) 12/11/18 08:17 Urine WBC (Auto) 11.0 /HPF (0.0-6.0) H 12/11/18 08:17 Urine RBC (Auto) 5.0 /HPF (0.0-6.0) 12/11/18 08:17 U Epithel Cells (Auto) 4.0 /HPF (0-13.0) 12/11/18 08:17 Urine Bacteria (Auto) 1+ /HPF (Negative) 12/11/18 08:17 Urine Mucus 3+ /HPF 12/11/18 08:17 Hepatitis A IgM Ab Non-reactive (NonReactive) 12/12/18 06:57 Hep Bs Antigen Non-reactive (Negative) 12/12/18 06:57 Hep B Core IgM Ab Non-reactive (NonReactive) 12/12/18 06:57 Hepatitis C Antibody Reactive (NonReactive) A 12/12/18 06:57 Hepatitis C Genotype 1a 12/12/18 06:57
[2018-12-16] MEDS: ZOFRAN IV PRN (19:43)
[2018-12-16] MEDS: DILAUDID IV PRN (19:45)
[2018-12-16] MEDS: DESYREL PO SCH (21:59)
[2018-12-17] MEDS: BUSPAR PO SCH ×4 (02:22→23:05)
[2018-12-17] MEDS: DILAUDID IV PRN ×3 (05:03→18:11)
[2018-12-17] MEDS: FLAGYL 500 MG/100 ML 500 MG/100 ML BAG IV SCH ×3 (05:04→22:13)
[2018-12-17 05:28] LABS: Basophils % (Auto) 0.4 % (0.0-1.8); Eosinophils # (Auto) 0.3 K/mm3 (0.0-0.4); Eosinophils % (Auto) 5.3 % (0.0-4.3); Hematocrit 37.2 % (30.3-42.9); Hemoglobin 12.7 gm/dl (10.1-14.3); Lymphocytes # (Auto) 1.6 K/mm3 (1.2-5.4); Lymphocytes % (Auto) 27.5 % (13.4-35.0); Mean Corpuscular HGB Conc 34 % (30-34); Mean Corpuscular Volume 93 fl (79-97); Monocytes # (Auto) 0.5 K/mm3 (0.0-0.8); Monocytes % (Auto) 8.5 % (0.0-7.3); Platelet Count 199 K/mm3 (140-440); Red Cell Distribution Width 13.2 % (13.2-15.2)
[2018-12-17 05:44] LABS: Alanine Aminotransferase 100 units/L (7-56); Albumin 3.1 g/dL (3.9-5); BUN/Creatinine Ratio 7; Blood Urea Nitrogen 5 mg/dL (7-17); Calcium 8.2 mg/dL (8.4-10.2); Hemolysis Index 3
[2018-12-17] MEDS: ZOFRAN IV PRN (11:02)
[2018-12-17] MEDS: celeXA PO SCH (11:02)
[2018-12-17] MEDS: PROTONIX IV SCH ×2 (11:02→22:12)
[2018-12-17] MEDS: SODIUM CHLORIDE FLUSH SYRINGE 10 ML IV SCH ×2 (11:02→22:13)
[2018-12-17] MEDS: LEVAQUIN 750MG/150ML 750 MG/150 ML BAG IV SCH (11:03)
[2018-12-17] MEDS: NORCO 5/325 PO PRN ×3 (11:03→20:42)
--- NOTE | 2018-12-17 17:22 | Progress Note ---
Assessment and Plan Assessment and plan: Acute choledocholithiasis: s/p Cholecystectomy clear liquids -On IV antibiotics and Protonix -Lipase level normal -Abdominal ultrasound suggestive of choledocholithiasis, -HIDA scan suggestive of chronic cholecystitis -MRCP showed dilated CBD and distal filling defect, likely gallstone -Status post ERCP -Findings reviewed Mild distal ampullary stenosis Transaminitis -likely 2/2 cholecystitis with CBD dilatation versus HCV infection -levels improved UTI -On IV antibiotic -Urine culture neg so far Diarrhea -Resolved Hypotension -likely narcotic induced -BP improved Recent diagnosis of HCV Infection -For out-pt f/u H/o Anxiety -stable on home meds Polysubstance abuse(tobacco and methamphetamine) -Patient counseled DVT prophylaxis with SCD possible DC tomorrow if stable History Interval history: Patient seen and examined,no new events reported by nursing Feels better vitl signs better Hospitalist Physical - Constitutional Vitals: Temp Pulse Resp BP Pulse Ox 98.8 F 70 20 111/74 94 12/17/18 11:19 12/17/18 11:19 12/17/18 11:19 12/17/18 11:19 12/17/18 11:19 General appearance: Present: no acute distress, well-nourished - EENT Eyes: Present: PERRL, EOM intact - Neck Neck: Present: supple, normal ROM - Respiratory Respiratory effort: normal Respiratory: negative: rales, rhonchi, wheezing - Cardiovascular Rhythm: regular Heart Sounds: Present: S1 & S2 - Extremities Extremities: no ischemia, No edema - Abdominal General gastrointestinal: soft, non-tender, non-distended, normal bowel sounds - Integumentary Integumentary: Present: clear, warm - Psychiatric Psychiatric: appropriate mood/affect, cooperative - Neurologic Neurologic: CNII-XII intact, moves all extremities Results - Labs CBC & Chem 7: 12/17/18 04:37 12/17/18 04:37 Labs: Laboratory Last Values WBC 5.7 K/mm3 (4.5-11.0) 12/17/18 04:37 RBC 4.00 M/mm3 (3.65-5.03) 12/17/18 04:37 Hgb 12.7 gm/dl (10.1-14.3) 12/17/18 04:37 Hct 37.2 % (30.3-42.9) 12/17/18 04:37 MCV 93 fl (79-97) 12/17/18 04:37 MCH 32 pg (28-32) 12/17/18 04:37 MCHC 34 % (30-34) 12/17/18 04:37 RDW 13.2 % (13.2-15.2) 12/17/18 04:37 Plt Count 199 K/mm3 (140-440) 12/17/18 04:37 Lymph % (Auto) 27.5 % (13.4-35.0) 12/17/18 04:37 [place] % (Auto) 8.5 % (0.0-7.3) H 12/17/18 04:37 Eos % (Auto) 5.3 % (0.0-4.3) H 12/17/18 04:37 Baso % (Auto) 0.4 % (0.0-1.8) 12/17/18 04:37 Lymph # 1.6 K/mm3 (1.2-5.4) 12/17/18 04:37 [place] # 0.5 K/mm3 (0.0-0.8) 12/17/18 04:37 Eos # 0.3 K/mm3 (0.0-0.4) 12/17/18 04:37 Baso # 0.0 K/mm3 (0.0-0.1) 12/17/18 04:37 Seg Neutrophils % 58.3 % (40.0-70.0) 12/17/18 04:37 Seg Neutrophils # 3.3 K/mm3 (1.8-7.7) 12/17/18 04:37 PT 14.3 Sec. (12.2-14.9) 12/12/18 06:57 INR 1.05 (0.87-1.13) 12/12/18 06:57 Sodium 138 mmol/L (137-145) 12/17/18 04:37 Potassium 3.9 mmol/L (3.6-5.0) 12/17/18 04:37 Chloride 102.1 mmol/L (98-107) 12/17/18 04:37 Carbon Dioxide 29 mmol/L (22-30) 12/17/18 04:37 Anion Gap 11 mmol/L 12/17/18 04:37 BUN 5 mg/dL (7-17) L 12/17/18 04:37 Creatinine 0.7 mg/dL (0.7-1.2) 12/17/18 04:37 Estimated GFR > 60 ml/min 12/17/18 04:37 BUN/Creatinine Ratio 7 % 12/17/18 04:37 Glucose 87 mg/dL (65-100) 12/17/18 04:37 Calcium 8.2 mg/dL (8.4-10.2) L 12/17/18 04:37 Magnesium 1.80 mg/dL (1.7-2.3) 12/12/18 06:57 Total Bilirubin 0.30 mg/dL (0.1-1.2) 12/17/18 04:37 AST 32 units/L (5-40) 12/17/18 04:37 ALT 100 units/L (7-56) H 12/17/18 04:37 Alkaline Phosphatase 81 units/L (35-129) 12/17/18 04:37 Total Protein 5.5 g/dL (6.3-8.2) L 12/17/18 04:37 Albumin 3.1 g/dL (3.9-5) L 12/17/18 04:37 Albumin/Globulin Ratio 1.3 % 12/17/18 04:37 Ceruloplasmin 27 mg/dL (18-53) 12/14/18 11:53 Amylase 41 units/L (27-131) 12/17/18 04:37 Lipase 20 units/L (13-60) 12/11/18 08:23 HCG, Qual Negative (Negative) 12/11/18 08:23 Urine Color [place] (Yellow) 12/11/18 08:17 Urine Turbidity Clear (Clear) 12/11/18 08:17 Urine pH 5.0 (5.0-7.0) 12/11/18 08:17 Ur Specific [place] 1.031 (1.003-1.030) H 12/11/18 08:17 Urine Protein 30 mg/dl mg/dL (Negative) 12/11/18 08:17 Urine Glucose (UA) Neg mg/dL (Negative) 12/11/18 08:17 Urine Ketones Neg mg/dL (Negative) 12/11/18 08:17 Urine Blood Neg (Negative) 12/11/18 08:17 Urine Nitrite Neg (Negative) 12/11/18 08:17 Urine Bilirubin Neg (Negative) 12/11/18 08:17 Urine Urobilinogen < 2.0 mg/dL (<2.0) 12/11/18 08:17 Ur Leukocyte Esterase Tr (Negative) 12/11/18 08:17 Urine WBC (Auto) 11.0 /HPF (0.0-6.0) H 12/11/18 08:17 Urine RBC (Auto) 5.0 /HPF (0.0-6.0) 12/11/18 08:17 U Epithel Cells (Auto) 4.0 /HPF (0-13.0) 12/11/18 08:17 Urine Bacteria (Auto) 1+ /HPF (Negative) 12/11/18 08:17 Urine Mucus 3+ /HPF 12/11/18 08:17 Mitochondria M2 Ab <=20.0 U (<=20.0) 12/14/18 11:53 Hepatitis A IgM Ab Non-reactive (NonReactive) 12/12/18 06:57 Hep Bs Antigen Non-reactive (Negative) 12/12/18 06:57 Hep B Core IgM Ab Non-reactive (NonReactive) 12/12/18 06:57 Hepatitis C Antibody Reactive (NonReactive) A 12/12/18 06:57 Hepatitis C Genotype 1a 12/12/18 06:57
--- NOTE | 2018-12-17 19:32 | Progress Note ---
Assessment and Plan POD # 1 Pt c/o of incisional pain, otherwise doing well. Abd soft, non tender. + BS T Anish .3 surgically stable low fat cl liq diet advance to solid low fat diet in am february d/c in am from surg perspective if diet sharri and no compl rto Saturday Selected Entries 12/17/18 16:41 Temperature 98.5 F Pulse Rate 67 Respiratory 18 Rate Blood Pressure 110/71 Laboratory Tests 12/16/18 12/17/18 12/17/18 07:10 04:37 04:37 WBC 5.7 Hgb 12.7 Hct 37.2 Total Bilirubin 0.30 AST 32 ALT 132 H 100 H Alkaline Phosphatase 103 81 Objective Vital Signs - 12hr 12/17/18 12/17/18 11:19 16:41 Temperature 98.8 F 98.5 F Pulse Rate 70 67 Respiratory 20 18 Rate Blood Pressure 111/74 110/71 O2 Sat by Pulse 94 97 Oximetry - Labs 12/17/18 04:37 12/17/18 04:37 Diabetes panel 12/17/18 Range/Units 04:37 Sodium 138 (137-145) mmol/L Potassium 3.9 (3.6-5.0) mmol/L Chloride 102.1 (98-107) mmol/L Carbon Dioxide 29 (22-30) mmol/L BUN 5 L (7-17) mg/dL Creatinine 0.7 (0.7-1.2) mg/dL Glucose 87 (65-100) mg/dL Calcium 8.2 L (8.4-10.2) mg/dL AST 32 (5-40) units/L ALT 100 H (7-56) units/L Alkaline Phosphatase 81 (35-129) units/L Total Protein 5.5 L (6.3-8.2) g/dL Albumin 3.1 L (3.9-5) g/dL Calcium panel 12/17/18 Range/Units 04:37 Calcium 8.2 L (8.4-10.2) mg/dL Albumin 3.1 L (3.9-5) g/dL Pituitary panel 12/17/18 Range/Units 04:37 Sodium 138 (137-145) mmol/L Potassium 3.9 (3.6-5.0) mmol/L Chloride 102.1 (98-107) mmol/L Carbon Dioxide 29 (22-30) mmol/L BUN 5 L (7-17) mg/dL Creatinine 0.7 (0.7-1.2) mg/dL Glucose 87 (65-100) mg/dL Calcium 8.2 L (8.4-10.2) mg/dL Adrenal panel 12/17/18 Range/Units 04:37 Sodium 138 (137-145) mmol/L Potassium 3.9 (3.6-5.0) mmol/L Chloride 102.1 (98-107) mmol/L Carbon Dioxide 29 (22-30) mmol/L BUN 5 L (7-17) mg/dL Creatinine 0.7 (0.7-1.2) mg/dL Glucose 87 (65-100) mg/dL Calcium 8.2 L (8.4-10.2) mg/dL Total Bilirubin 0.30 (0.1-1.2) mg/dL AST 32 (5-40) units/L ALT 100 H (7-56) units/L Alkaline Phosphatase 81 (35-129) units/L Total Protein 5.5 L (6.3-8.2) g/dL Albumin 3.1 L (3.9-5) g/dL
[2018-12-17] MEDS: DESYREL PO SCH (22:13)
[2018-12-18] MEDS: NORCO 5/325 PO PRN ×4 (02:22→21:00)
[2018-12-18] MEDS: LACTATED RINGERS 1,000 ML IV SCH ×2 (02:26→14:48)
[2018-12-18] MEDS: FLAGYL 500 MG/100 ML 500 MG/100 ML BAG IV SCH ×3 (05:42→20:59)
[2018-12-18] MEDS: ZOFRAN IV PRN (08:43)
[2018-12-18] MEDS: LEVAQUIN 750MG/150ML 750 MG/150 ML BAG IV SCH (10:39)
[2018-12-18] MEDS: celeXA PO SCH (10:39)
[2018-12-18] MEDS: BUSPAR PO SCH ×2 (10:39→20:59)
[2018-12-18] MEDS: SODIUM CHLORIDE FLUSH SYRINGE 10 ML IV SCH ×2 (10:40→22:13)
[2018-12-18 11:50] LABS: ANA Screen, IFA Negative (Negative)
[2018-12-18] MEDS: PROTONIX PO SCH ×2 (13:10→21:00)
--- NOTE | 2018-12-18 13:10 | Progress Note ---
Assessment and Plan POD # 2 Pt not eating. c/o nausea and heartburn. Abd soft, non tender. op sites clean and dry pt taking too much pain meds. instructed to cut back on these as they will cause her nausea & ileus surgically stable may d/c when diet sharri if d/c'ed, RTO this Saturday Selected Entries 12/18/18 11:21 Temperature 98.9 F Pulse Rate 65 Respiratory 20 Rate Blood Pressure 119/81 Objective Vital Signs - 12hr 12/18/18 12/18/18 05:39 11:21 Temperature 99.4 F 98.9 F Pulse Rate 70 65 Respiratory 16 20 Rate Blood Pressure 111/69 119/81 O2 Sat by Pulse 90 92 Oximetry - Labs 12/17/18 04:37 12/17/18 04:37
--- NOTE | 2018-12-18 14:23 | Progress Note ---
Assessment and Plan Assessment and plan: --Acute choledocholithiasis: s/p Cholecystectomy Surgery recommended regular diet An DC home if tolerates food Cut down on pain medications Ambulate as tolerated --MRCP showed dilated CBD and distal filling defect, likely gallstone Status post ERCP Findings reviewed Mild distal ampullary stenosis --Transaminitis likely 2/2 cholecystitis with CBD dilatation versus HCV infection Trending Down --UTI On IV antibiotic Urine culture neg so far --Diarrhea; Resolved --Hypotension,BP improved --Recent diagnosis of HCV Infection -For out-pt f/u --H/o Anxiety -stable on home meds --Polysubstance abuse(tobacco and methamphetamine) Patient counseled --DVT prophylaxis with SCD possible DC tomorrow if stable History Interval history: Patient seen and examined medical records. Patient complaints of nausea unable to tolerate food Surgery recommended regular diet Patient also complains of more pain and asking for more pain medications Alert awake oriented 3 Vital signs noted Hospitalist Physical - Constitutional Vitals: Temp Pulse Resp BP Pulse Ox 98.9 F 65 20 119/81 92 12/18/18 11:21 12/18/18 11:21 12/18/18 11:21 12/18/18 11:21 12/18/18 11:21 General appearance: Present: no acute distress, well-nourished - EENT Eyes: Present: PERRL, EOM intact - Neck Neck: Present: supple, normal ROM - Respiratory Respiratory effort: normal Respiratory: bilateral: diminished, negative: rales, rhonchi, wheezing - Cardiovascular Rhythm: regular Heart Sounds: Present: S1 & S2 - Extremities Extremities: no ischemia, No edema - Abdominal General gastrointestinal: soft, tender (no guarding no rigidity), normal bowel sounds - Integumentary Integumentary: Present: clear, warm - Psychiatric Psychiatric: appropriate mood/affect, cooperative - Neurologic Neurologic: CNII-XII intact, moves all extremities Results - Labs CBC & Chem 7: 12/17/18 04:37 12/17/18 04:37 Labs: Laboratory Last Values WBC 5.7 K/mm3 (4.5-11.0) 12/17/18 04:37 RBC 4.00 M/mm3 (3.65-5.03) 12/17/18 04:37 Hgb 12.7 gm/dl (10.1-14.3) 12/17/18 04:37 Hct 37.2 % (30.3-42.9) 12/17/18 04:37 MCV 93 fl (79-97) 12/17/18 04:37 MCH 32 pg (28-32) 12/17/18 04:37 MCHC 34 % (30-34) 12/17/18 04:37 RDW 13.2 % (13.2-15.2) 12/17/18 04:37 Plt Count 199 K/mm3 (140-440) 12/17/18 04:37 Lymph % (Auto) 27.5 % (13.4-35.0) 12/17/18 04:37 [place] % (Auto) 8.5 % (0.0-7.3) H 12/17/18 04:37 Eos % (Auto) 5.3 % (0.0-4.3) H 12/17/18 04:37 Baso % (Auto) 0.4 % (0.0-1.8) 12/17/18 04:37 Lymph # 1.6 K/mm3 (1.2-5.4) 12/17/18 04:37 Fountain # 0.5 K/mm3 (0.0-0.8) 12/17/18 04:37 Eos # 0.3 K/mm3 (0.0-0.4) 12/17/18 04:37 Baso # 0.0 K/mm3 (0.0-0.1) 12/17/18 04:37 Seg Neutrophils % 58.3 % (40.0-70.0) 12/17/18 04:37 Seg Neutrophils # 3.3 K/mm3 (1.8-7.7) 12/17/18 04:37 PT 14.3 Sec. (12.2-14.9) 12/12/18 06:57 INR 1.05 (0.87-1.13) 12/12/18 06:57 Sodium 138 mmol/L (137-145) 12/17/18 04:37 Potassium 3.9 mmol/L (3.6-5.0) 12/17/18 04:37 Chloride 102.1 mmol/L (98-107) 12/17/18 04:37 Carbon Dioxide 29 mmol/L (22-30) 12/17/18 04:37 Anion Gap 11 mmol/L 12/17/18 04:37 BUN 5 mg/dL (7-17) L 12/17/18 04:37 Creatinine 0.7 mg/dL (0.7-1.2) 12/17/18 04:37 Estimated GFR > 60 ml/min 12/17/18 04:37 BUN/Creatinine Ratio 7 % 12/17/18 04:37 Glucose 87 mg/dL (65-100) 12/17/18 04:37 Calcium 8.2 mg/dL (8.4-10.2) L 12/17/18 04:37 Magnesium 1.80 mg/dL (1.7-2.3) 12/12/18 06:57 Total Bilirubin 0.30 mg/dL (0.1-1.2) 12/17/18 04:37 AST 32 units/L (5-40) 12/17/18 04:37 ALT 100 units/L (7-56) H 12/17/18 04:37 Alkaline Phosphatase 81 units/L (35-129) 12/17/18 04:37 Total Protein 5.5 g/dL (6.3-8.2) L 12/17/18 04:37 Albumin 3.1 g/dL (3.9-5) L 12/17/18 04:37 Albumin/Globulin Ratio 1.3 % 12/17/18 04:37 Ceruloplasmin 27 mg/dL (18-53) 12/14/18 11:53 Amylase 41 units/L (27-131) 12/17/18 04:37 Lipase 20 units/L (13-60) 12/11/18 08:23 HCG, Qual Negative (Negative) 12/11/18 08:23 Urine Color Em[place] (Yellow) 12/11/18 08:17 Urine Turbidity Clear (Clear) 12/11/18 08:17 Urine pH 5.0 (5.0-7.0) 12/11/18 08:17 Ur Specific [place] 1.031 (1.003-1.030) H 12/11/18 08:17 Urine Protein 30 mg/dl mg/dL (Negative) 12/11/18 08:17 Urine Glucose (UA) Neg mg/dL (Negative) 12/11/18 08:17 Urine Ketones Neg mg/dL (Negative) 12/11/18 08:17 Urine Blood Neg (Negative) 12/11/18 08:17 Urine Nitrite Neg (Negative) 12/11/18 08:17 Urine Bilirubin Neg (Negative) 12/11/18 08:17 Urine Urobilinogen < 2.0 mg/dL (<2.0) 12/11/18 08:17 Ur Leukocyte Esterase Tr (Negative) 12/11/18 08:17 Urine WBC (Auto) 11.0 /HPF (0.0-6.0) H 12/11/18 08:17 Urine RBC (Auto) 5.0 /HPF (0.0-6.0) 12/11/18 08:17 U Epithel Cells (Auto) 4.0 /HPF (0-13.0) 12/11/18 08:17 Urine Bacteria (Auto) 1+ /HPF (Negative) 12/11/18 08:17 Urine Mucus 3+ /HPF 12/11/18 08:17 RELL Screen Negative (Negative) 12/14/18 11:53 Sm (Mtz) Antibody <1.0 AI (<1.0) 12/14/18 11:53 Mitochondria M2 Ab <=20.0 U (<=20.0) 12/14/18 11:53 Hepatitis A IgM Ab Non-reactive (NonReactive) 12/12/18 06:57 Hep Bs Antigen Non-reactive (Negative) 12/12/18 06:57 Hep B Core IgM Ab Non-reactive (NonReactive) 12/12/18 06:57 Hepatitis C Antibody Reactive (NonReactive) A 12/12/18 06:57 Hepatitis C RNA Quant See scanned report 12/12/18 06:57 Hepatitis C Genotype 1a 12/12/18 06:57
[2018-12-18] MEDS: DESYREL PO SCH (21:00)
[2018-12-19] MEDS: NORCO 5/325 PO PRN ×3 (02:59→14:15)
[2018-12-19] MEDS: FLAGYL 500 MG/100 ML 500 MG/100 ML BAG IV SCH (06:09)
[2018-12-19] MEDS: LACTATED RINGERS 1,000 ML IV SCH (06:10)
[2018-12-19] MEDS: ZOFRAN IV PRN (08:31)
[2018-12-19] MEDS: PROTONIX PO SCH (10:03)
[2018-12-19] MEDS: BUSPAR PO SCH (10:03)
[2018-12-19] MEDS: celeXA PO SCH (10:03)
[2018-12-19] MEDS: LEVAQUIN 750MG/150ML 750 MG/150 ML BAG IV SCH (10:03)
[2018-12-19 11:31] VITALS: BP 111/72
--- NOTE | 2018-12-19 12:00 | Progress Note ---
Assessment and Plan Pt feeling well but c/o nausea. "not eating much" Abd soft, non tender surgically stable may d/c from surg perspective if po diet sharri rto Saturday Selected Entries 12/19/18 12/19/18 05:52 11:29 Temperature 97.4 F L Pulse Rate 65 Respiratory 20 Rate Blood Pressure 111/72 Laboratory Tests 12/17/18 04:37 Amylase 41 Objective Vital Signs - 12hr 12/19/18 12/19/18 12/19/18 00:32 02:59 03:59 Temperature 98.2 F Pulse Rate 78 Respiratory 16 20 18 Rate Blood Pressure 88/55 O2 Sat by Pulse 92 Oximetry 12/19/18 12/19/18 05:52 11:29 Temperature 97.7 F 97.4 F L Pulse Rate 65 Respiratory 18 20 Rate Blood Pressure 125/86 111/72 O2 Sat by Pulse 90 Oximetry - Labs 12/17/18 04:37 12/17/18 04:37
--- NOTE | 2018-12-19 13:23 | Discharge Summary ---
Providers - Providers Date of Admission: 12/15/18 10:57 Date of discharge: 12/19/18 Attending physician: MAYITO ANDERSEN 12/11/18 10:33 Consult to Physician [CONS] Routine Comment: Dr. Wilson notified @ 10:30am- [facility] Consulting Provider: JOEY WILSON Physician Instructions: Reason For Exam: choledocholithiasis 12/11/18 12:38 Consult to Physician [CONS] Routine Comment: Consulting Provider: ALFREDO GARCIA Physician Instructions: Reason For Exam: elevated LFT's hep C hx. 6 mm CBD on US 12/18/18 14:17 Physical Therapy Evaluation and Treat [CONS] Routine Comment: Reason For Exam: post op/evaluate and treat Primary care physician: JESUS BUSTILLOS Hospitalization Reason for admission: Nausea vomiting and abdominal pain Condition: Stable Pertinent studies: -Abdominal ultrasound suggestive of choledocholithiasis, -HIDA scan suggestive of chronic cholecystitis -MRCP showed dilated CBD and distal filling defect, likely gallstone Procedures: ERCP with biliary sphincterotomy and balloon sweep of CBD Lap cholecystectomy Hospital course: 28 yo female with pmh of HCV (not treated) admitted for N/V/D. GI evaluated ,had extensive work up as mentioned above. Patient was evaluated by GI and surgery ,underwent ERCP with sphincterotomy and lap cholecystectomy. Patient.s symptoms significantly improved. Today patient is comfortable,no ew complaints,vital signs are stable, Physical exam at discharge is unremarkable. Cleare by GI and surgery for discharge and f/u upon discharge per schedule Discharge Diagnosis: --Acute choledocholithiasis: s/p Cholecystectomy Surgery evaluated and followed the pt Advance Diet as tolerated --MRCP showed dilated CBD and distal filling defect, likely gallstone ERCP with biliary sphincterotomy and balloon sweep of CBD --Transaminitis likely 2/2 cholecystitis with CBD dilatation versus HCV infection --UTI; On IV antibiotic,Urine culture neg so far --Diarrhea; Resolved --Hypotension,BP improved --Recent diagnosis of HCV Infection, out-pt f/u --H/o Anxiety; stable on home meds --Polysubstance abuse(tobacco and methamphetamine) Patient counseled to quit substance abuse --DVT prophylaxis with SCD Patient is stable at discharge Disposition: TO HOME OR SELFCARE Time spent for discharge: 32 min Core Measure Documentation - Palliative Care Palliative Care/ Comfort Measures: Not Applicable - Core Measures Any of the following diagnoses?: none Exam - Constitutional Vitals: Temp Pulse Resp BP Pulse Ox 97.4 F L 65 20 111/72 90 12/19/18 11:29 12/19/18 05:52 12/19/18 11:29 12/19/18 11:29 12/19/18 05:52 General appearance: Present: no acute distress, well-nourished - EENT Eyes: Present: PERRL, EOM intact - Neck Neck: Present: supple, normal ROM - Respiratory Respiratory effort: normal Respiratory: bilateral: diminished, negative: rales, rhonchi, wheezing - Cardiovascular Rhythm: regular Heart Sounds: Present: S1 & S2 - Extremities Extremities: no ischemia, No edema Peripheral Pulses: within normal limits - Abdominal General gastrointestinal: Present: soft, non-tender, non-distended, normal bowel sounds - Integumentary Integumentary: Present: clear, warm - Musculoskeletal Musculoskeletal: strength equal bilaterally - Psychiatric Psychiatric: appropriate mood/affect, cooperative - Neurologic Neurologic: CNII-XII intact, moves all extremities Plan Activity: advance as tolerated Diet: advance as tolerated Additional Instructions: Advised [id number] pain medications as needed. No lifting or straining x 1 week. Keep dressing dry x 5days. Low fat diet. f/u Dr Wilson on 12/22/18 Follow up with: PRIMARY CAREMD [Referring] - 3-5 Days JOEY WILSON MD [Staff Physician] - 12/22/18 PABLO ANN MD [Staff Physician] - 7 Days Prescriptions: Ondansetron [Zofran Odt] 4 mg PO Q8HR #15 tab.rapdis Pantoprazole [Protonix TAB] 40 mg PO DAILY #14 tablet
== END 2018-12-19 15:15 | disposition home or self-care (01) | DRG 854 ==
LOC: ED 07:55 → 3A 10:37 → OBSVTOIN 12-15 10:57
PROVIDERS: ADMIT Internal Medicine; ATTEND Internal Medicine
PROC: 0F798ZZ Dilation of Common Bile Duct, Via Natural or Artificial Opening Endoscopic (ICD-10-PCS; principal; 2018-12-15)
PROC: 0F778ZZ Dilation of Common Hepatic Duct, Via Natural or Artificial Opening Endoscopic (ICD-10-PCS; 2018-12-15)
PROC: BF111ZZ Fluoroscopy of Biliary and Pancreatic Ducts using Low Osmolar Contrast (ICD-10-PCS; 2018-12-15)
PROC: 0FT44ZZ Resection of Gallbladder, Percutaneous Endoscopic Approach (ICD-10-PCS; 2018-12-16)
DX: A41.9 Sepsis, unspecified organism (principal); K80.45 Calculus of bile duct with chronic cholecystitis with obstruction; N39.0 Urinary tract infection, site not specified; I95.9 Hypotension, unspecified; F17.200 Nicotine dependence, unspecified, uncomplicated; B19.20 Unspecified viral hepatitis C without hepatic coma; F41.9 Anxiety disorder, unspecified; F10.10 Alcohol abuse, uncomplicated; Z88.0 Allergy status to penicillin; Z79.899 Other long term (current) drug therapy; F19.10 Other psychoactive substance abuse, uncomplicated; R74.0 Nonspecific elevation of levels of transaminase and lactic acid dehydrogenase [LDH]
CPT/HCPCS: 36415; 74181; 74329; 76705; 78226; 80053; 80074; 81001; 82150; 82390; 83520; 83690; 83735; 84703; 85025; 85610; 86038; 86235; 87086; 87517; 87902; 88304; G0378; A9537; C1726; C9113; J0330; J1170; J1956; J2250; J2270; J2405; J2704; J2710; J3010; J7030; J7040; J7120; Q0162; Q9967